=== PATIENT | female | born 1985 | race African-American/Black ===

== ENCOUNTER 2016-07-25 12:56 | Outpatient (CLI) | payer OTHER | END 2016-07-25 12:57 | disposition home or self-care (01) | DX: Z36 Encounter for antenatal screening of mother (principal) ==

== ENCOUNTER 2016-07-27 11:20 | Outpatient (CLI) | payer OTHER | END 2016-07-27 11:21 | disposition home or self-care (01) | DX: Z36 Encounter for antenatal screening of mother (principal) ==

== ENCOUNTER 2016-10-07 07:25 | Outpatient (CLI) | payer OTHER | END 2016-10-07 07:26 | disposition home or self-care (01) | DX: Z36 Encounter for antenatal screening of mother (principal) ==

== ENCOUNTER 2016-11-24 10:50 | Outpatient (CLI) | payer OTHER ==
[2016-11-24 12:34] LABS: BASOPHILS % (AUTO) 0.3 %; EOSINOPHILS # (AUTO) 0.1 10^3/uL (0.0-0.7); EOSINOPHILS % (AUTO) 0.8 %; HCT - HEMATOCRIT 37.9 % (37.0-47.0); HGB - HEMOGLOBIN 12.9 g/dL (12.0-16.0); LYMPHOCYTES # (AUTO) 1.7 10^3/uL (1.5-3.5); LYMPHOCYTES % (AUTO) 12.3 %; MEAN CORPUSCULAR HEMOGLOBIN 34.3 pg (27.0-31.0); MEAN CORPUSCULAR VOLUME 101.1 fL (81.0-99.0); MEAN PLATELET VOLUME 7.9 fL (7.9-10.8); MONOCYTES # (AUTO) 0.8 10^3/uL (0.0-1.0); MONOCYTES % (AUTO) 5.5 %; NEUTROPHILS # (AUTO) 11.4 10^3/uL (1.5-6.6); NEUTROPHILS % (AUTO) 81.1 %; RED BLOOD COUNT 3.75 10^6/uL (4.20-5.40); RED CELL DISTRIBUTION WIDTH 12.4 % (12.0-15.0); UNCORRECTED WHITE BLOOD COUNT 14.1 x10^3/uL; WHITE BLOOD COUNT 14.1 x10^3/uL (4.8-10.8)
== END 2016-11-24 10:51 | disposition home or self-care (01) ==
LOC: LAB 10:50
PROVIDERS: ATTEND Nurse Practitioner Obstetrics & Gynecology
DX: Z36 Encounter for antenatal screening of mother (principal)
CPT/HCPCS: 36415; 81599; 82950; 85025; 86762; 86850; 86900; 86901; 87340; 87389

== ENCOUNTER 2017-01-23 11:14 | Outpatient (CLI) | payer OTHER | END 2017-01-23 11:15 | disposition home or self-care (01) | LOC: LAB.R 11:14 | PROVIDERS: ATTEND Nurse Practitioner Obstetrics & Gynecology | DX: Z36 Encounter for antenatal screening of mother (principal) | CPT/HCPCS: 87081 ==

== ENCOUNTER 2017-02-15 05:06 | Inpatient (IN) | payer OTHER ==
[2017-02-15] MEDS ORDERED: SODIUM CHLORIDE FLUSH 0.9% 10 ML SYRINGE IVP ONE ×2 (06:05→06:28)
[2017-02-15] MEDS ORDERED: ONDANSETRON 4 MG/2 ML VIAL IVP PRN (06:25)
[2017-02-15] MEDS ORDERED: SODIUM CHLORIDE FLUSH 0.9% 10 ML SYRINGE IVP PRN (06:25)
--- NOTE | 2017-02-15 06:31 | HISTORY & PHYSICAL EXAMINATION ---
Admit History - Instructions [place]/Slash: -Left hand click circles element as positive or present. -Right hand click slashes element as negative or not present. - Visit Reason Visit Reason: Contractions - : 1 Parity: 0 Premature: 0 Ectopic: 0 : 0 Care: positive: [facility] Risk/History: positive: None Complications This : positive: None Smoking Status: Never smoker - Mother's Labs Mother's Blood Type: positive: O Mother's RH: positive: Positive GBS: positive: Group B Step Negative Rubella Status: positive: Immune Meds/Allgy - Home Medications Home Medications: Ambulatory Orders Medication Instructions Recorded Confirmed Pnv No.122/Iron/Folic Acid 1 each PO 02/15/17 [ Multi Tablet] - Allergies Allergies/Adverse Reactions: Allergies Allergy/AdvReac Type Severity Reaction Status Date / Time No Known Drug Allergies Allergy Verified 02/15/17 06:31 Physical - Abdominal Exam Vital Signs: Temp Pulse Resp BP Pulse Ox 36.4 C L 66 16 132/88 H 100 02/15/17 05:02/15/17 05:02/15/17 05:02/15/17 05:02/15/17 05:17 : 4 Contraction Intensity: positive: Moderate Uterine Resting Tone: positive: Soft - Monitoring Heart Rate Baseline: 135bpm Strip Review: positive: Category I - Presentation Presentation: positive: Vertex - Vaginal Exam Membranes: positive: Membranes intact Dilation (in cm): 4 Effacement (%): 70 Station: positive: -1 (per RN) - Speculum Exam Speculum Exam Performed: positive: No Findings: negative: Gross leak - Other Notes Labor Progress Note/Additional Text: HPI: Stephany Kendall is a 31 y/o @ 39w2d by LMP and concordant 9wk US who presents for uterine contractions @ term. Upon evaluation by RN, her SVE was 4/ 70/-1. She reports no LOF, no vaginal bleeding, some mucoid blood-tinged vaginal d/c, uterine contractions that have gotten progressively intense & painful since 00:00, and good FM. She was admitted to L&D for spontaneous normal labor @ term. She is accompanied by her supportive , Ariel. She is hoping for a minimally interventive labor and delivery experience, and she intends to utilize hydrotherapy for discomfort. She is expecting a baby girl , Kathy. Dating Criteria: LMP 05/16/2016; first US 07/09/16: 9.1 weeks, agrees w/ CANDY FEEDER hx: no hx of STI, no hx of ob/gyn surgery, hx of abnormal pap x1 w/ uncertain dx, last pap 05/27/2016 NILM, PMH: non-contributory PSH: b/l breast augmentation 2008 w/o complication Social hx: Never smoker, denies tob/illicit drugs/ETOH FamHx: DM: maternal GM; HTN paternal relatives, maternal relatives, mother Medications: PNV only Allergies: NKA Physical Exam: VS: WNL, stable Heart: RRR nls1s2, no murmur Lungs: CTA b/l t/o Abd: gravid, NT, palpably moderate contractions, q 4 minutes x60-80 seconds; lie longitudinal, presentation cephalic FHTs: 135bpm, + accels, no decels, moderate variability EFW: 6.-6.5# Pelvis: Not assessed by me; per RN report: SVE: /-1, IBOW Current labs: CBC/UA/clot to hold ordered & pending labs: Blood Type: O+ Hgb: 13.1; repeat @ 28 wks: 12.9 Hct: 38.0 PLT: 260 Rubella: Imm HIV: NR GC/CT: Neg Hep B: Neg RPR: NR 1hr gtt: 133 GBS: neg Tdap: administered 12/13/2016 Genetic Testing: NIPT WNL, XX Ultrasound: 10/07/2016 FAS WNL, anterior placenta w/o previa, AFV WNL, s=d Assessment: 31 y/o @ 39w2d in spontaneous active labor @ term FHTs cat I GBS neg, IBOW Adequate pain control w/o analgesia/anesthesia w/ desire for hydrotherapy & minimally interventive labor/delivery experience Plan: Admit to L&D monitoring: intermittent auscultation per protocol Activity ad ary Regular diet IV insertion & admission labs per orders Encouraged maternal mobility & reviewed optimal positioning to encourage further descent Reassess cervical status PRN Analgesia/anesthesia PRN per pt request, reviewed all options for pain management Anticipate Plan for Labor - Plan For Labor : Expectant, see detailed plan in labor progress notes Plan for Labor: Admit to L&D monitoring: intermittent auscultation per protocol Activity ad ary Regular diet IV insertion & admission labs per orders Encouraged maternal mobility & reviewed optimal positioning to encourage further descent Reassess cervical status PRN Analgesia/anesthesia PRN per pt request, reviewed all options for pain management Anticipate
[2017-02-15 06:58] LABS: BASOPHILS # (AUTO) 0.1 10^3/uL (0.0-0.1); BASOPHILS % (AUTO) 0.3 %; EOSINOPHILS # (AUTO) 0.1 10^3/uL (0.0-0.7); EOSINOPHILS % (AUTO) 0.5 %; HCT - HEMATOCRIT 41.3 % (37.0-47.0); HGB - HEMOGLOBIN 13.7 g/dL (12.0-16.0); LYMPHOCYTES % (AUTO) 17.7 %; MEAN CORPUSCULAR HEMOGLOBIN 33.5 pg (27.0-31.0); MEAN CORPUSCULAR HGB CONC 33.1 g/dL (32.0-36.0); MEAN CORPUSCULAR VOLUME 101.2 fL (81.0-99.0); MEAN PLATELET VOLUME 8.8 fL (7.9-10.8); MONOCYTES # (AUTO) 0.8 10^3/uL (0.0-1.0); NEUTROPHILS # (AUTO) 12.9 10^3/uL (1.5-6.6); NEUTROPHILS % (AUTO) 76.5 %; RED BLOOD COUNT 4.08 10^6/uL (4.20-5.40); RED CELL DISTRIBUTION WIDTH 12.9 % (12.0-15.0); UNCORRECTED WHITE BLOOD COUNT 16.9 x10^3/uL; WHITE BLOOD COUNT 16.9 x10^3/uL (4.8-10.8)
[2017-02-15] MEDS ORDERED: OXYTOCIN/LACTATED RINGERS 250 ML IV SCH (07:00)
--- NOTE | 2017-02-15 07:32 | PROVIDER PROGRESS NOTE ---
Labor Progress Note - Uterine Monitoring Uterine Monitoring Mode: positive: Palpation Contraction Frequency (min/apart): 4 Contraction Intensity: positive: Moderate to strong Uterine Resting Tone: positive: Soft - Monitoring Monitor Mode: positive: Doppler/auscultation Heart Rate Baseline: 140 Accelerations: positive: Present, 15x15 Decelerations: positive: None - Labor Progress Note Labor Progress Note/Additional Text: Stephany is doing well. She is resting quietly in bed, breathing through her contractions. Her , Ariel, is present @ the bedside & is supportive. She articulates a desire to have the technical staff assistant administer po vitamin K drops she has purchased through a supplement company online to her infant. We reviewed that the technical staff assistant will not administer a non-formulary substance to her infant, and we reviewed the recommendations for injectable vitamin K & rationale as well as evidence supporting its use & paucity of evidence supporting the use of po vitamin K in newborns. We reviewed the importance of prevention of early intracranial hemorrhage & the evidence that po vitamin K may prevent late hemorrhage but is unlikely to prevent early hemorrhage. We also reviewed the lack of FDA regulation for supplements in the [place] & the risks associated w/ this for the product that she obtained. I strongly recommended that she provide IM vitamin K per protocol for her infant. She remains skeptical & will discuss w/ her . She states that she has done her own research & that she knows that the IM vitamin K is an unnecessary intervention provided in hospital settings. We reviewed this at length, and I offered to provide her with literature for review. She declined. She is aware that she will need to complete a waiver re: refusal of vitamin K prior to d/c if she continues to decline, and she is inclined to do this. She articulates full understanding of risks of her decision & benefits of the intervention.
[2017-02-15 08:06] LABS: BILIRUBIN,URINE NEGATIVE (NEGATIVE); PH,URINE 6.5 PH (5.0-7.5)
[2017-02-15 08:18] LABS: UA CHARGE (STRIP ONLY) YES; UR CULTURE IF IND NOT INDICATED
--- NOTE | 2017-02-15 12:00 | PROVIDER PROGRESS NOTE ---
Labor Progress Note - Uterine Monitoring Uterine Monitoring Mode: positive: External toco Contraction Frequency (min/apart): 3-5 Contraction Intensity: positive: Moderate to strong Uterine Resting Tone: positive: Soft - Monitoring Monitor Mode: positive: External ultrasound Heart Rate Baseline: 145 Heart Rate Variability: positive: Moderate (6-25 bmp) Accelerations: positive: Present, 15x15 Decelerations: positive: None Strip Review: positive: Category I - Vaginal Exam Dilation (in cm): 4 Effacement (%): 80 Station: 0 Cervical Position: Midposition - Labor Progress Note Labor Progress Note/Additional Text: S: Stephany reports increased discomfort w/ her uterine contractions. She reports more vaginal discomfort & pressure. She has utilized hydrotherapy w/ good effect. She declines SVE or other intervention @ this time. She is eating lunch & she has her & his parents present @ the bedside; they are involved & very supportive. O: AAOx3, moderately uncomfortable gravid female VS: T 98.2F, HR 98bpm, RR 18, BP 122/80 EFM: BL 145bpm, + accels, no decels, moderate variability TOCO: UCs q3-5 minutes x70-90 seconds SVE per RN: 3-4/80/0 A: 32 y/o @ 39w2d in spontaneous labor Minimal cervical dilation since admission, but further descent & effacement FHTs Cat I GBS negative w/ IBOW Adequate pain control w/o analgesia/anesthesia Desires minimal intervention P: 1. Reviewed management options @ present, pt elects expectant management 2. Reviewed pain management options; pt desires ongoing hydrotherapy 3. Reviewed optimal maternal positioning 4. Reassess cervical status x4 hours, earlier PRN 5. Encouraged maternal hydration, high glycemic index foods 6. Pt declines additional labor support @ this time, prefers support from her
[2017-02-15] MEDS ORDERED: SODIUM CHLORIDE FLUSH 0.9% 10 ML SYRINGE IVP SCH (14:00)
--- NOTE | 2017-02-15 19:15 | PROVIDER PROGRESS NOTE ---
Labor Progress Note - Uterine Monitoring Uterine Monitoring Mode: positive: External toco Contraction Frequency (min/apart): 3-4 Contraction Intensity: positive: Strong Uterine Resting Tone: positive: Soft - Monitoring Monitor Mode: positive: External ultrasound Heart Rate Baseline: 140 Heart Rate Variability: positive: Moderate (6-25 bmp) Accelerations: positive: Present, 15x15 Decelerations: positive: None Strip Review: positive: Category I - Vaginal Exam Dilation (in cm): 60 Effacement (%): 95 Station: 0 Cervical Position: Anterior (per RN @ 6924) - Labor Progress Note Labor Progress Note/Additional Text: S: Stephany is breathing through her uterine contractions, moaning & swaying in the jacuzzi, which is helping her w/ her discomfort. Her partner is present @ the tubside & is involved & very supportive. She does not desire analgesia @ this time & declines SVE, declines AROM. She has had some bloody show, but she has not noticed any LOF. c/o low back pain w/ uterine contractions & increased vaginal pressure. O: AAOx3, moderately uncomfortable gravid female VS: T: 98.2F, HR 88bpm, RR 16, BP 124/78 EFM: BL 140bpm, + accels, no decels, moderate variability TOCO: UCs q3-4 minutes x70-90 seconds SVE per RN @ 1540: 6/95/0 A: 32 y/o @ 39w2d in spontaneous, active labor @ term Progressive cervical change since admission EFM consistently cat I Utilizing hydrotherapy effectively for pain management GBS negative w/ IBOW P: Reassess cervical status w/ change in clinical status Expectant management per pt request Analgesia/anesthesia per pt request, desires continuation of hydrotherapy @ present Reviewed optimal maternal positioning to encourage descent Anticipate
--- NOTE | 2017-02-15 20:01 | PROVIDER PROGRESS NOTE ---
Labor Progress Note - Uterine Monitoring Contraction Frequency (min/apart): 4-5 Contraction Intensity: positive: Strong Uterine Resting Tone: positive: Soft - Monitoring Monitor Mode: positive: External ultrasound Heart Rate Baseline: 145 Heart Rate Variability: positive: Moderate (6-25 bmp) Accelerations: positive: Present, 15x15 Decelerations: positive: None Strip Review: positive: Category I - Vaginal Exam Dilation (in cm): 9 Effacement (%): 90 Station: 1 Cervical Position: Anterior - Labor Progress Note Labor Progress Note/Additional Text: S: Stephany is feeling panicky & scared. She is having a harder time coping w/ uterine contractions. She is breathing through them. Her is present @ the tubside & is supportive. She prefers to continue to utilize hydrotherapy for pain management & she desires SVE to assess her progress. O: EFM: BL 145bpm +accels, no decels, mod variability TOCO: UCs q4-5 minutes x70-90 seconds, strong SVE: /0-+1 BBOW A: 32y/o @ 39w2d in active, spontaneous labor @ term Progressive cervical change FHTs consistently cat I GBS neg w/ IBOW Transition Does not desire analgesia/anesthesia P: Reviewed physiology of labor & transition phase Anticipatory guidance for second stage Extensive labor support, reviewed breathing, focus, position changes Continue use of hydrotherapy for pain management, per pt request Analgesia/anesthesia per pt request Encouraged high glycemic index fluid consumption, frequent voiding Reassess cervical status w/ maternal urge to push, earlier PRN Anticipate Reviewed plan of care w/ pt, partner & RN; all in agreement, without concerns
--- NOTE | 2017-02-15 22:24 | PROVIDER PROGRESS NOTE ---
Labor Progress Note - Uterine Monitoring Uterine Monitoring Mode: positive: External toco Contraction Frequency (min/apart): 3-4 Contraction Intensity: positive: Moderate to strong, Strong Uterine Resting Tone: positive: Soft - Monitoring Monitor Mode: positive: External ultrasound Heart Rate Baseline: 150 Heart Rate Variability: positive: Moderate (6-25 bmp) Accelerations: positive: Present, 15x15 Decelerations: positive: Early (to oracio in 100s w/ spontaneous return to baseline <60 seconds) Strip Review: positive: Category I - Vaginal Exam Dilation (in cm): 10 Effacement (%): 100 Station: 0, 1 Cervical Position: Anterior - Labor Progress Note Labor Progress Note/Additional Text: S:Stephany reports spontaneous urge to push. Very uncomfortable w/ profound vaginal pressure w/ each uterine contraction. O: VS: T98.2 HR 104bpm, RR 18 BP 100/73 EFM: BL 150bpm, + accels, + early decels to oracio in 100s w/ spontaneous return to baseline <60 seconds TOCO: UCs q3-4 minutes x70-90 seconds, palpably strong SVE: 10/100/0-+1, descends readily w/ maternal expulsive effort SROM for moderate amt light MSAF A: 32 y/o @ 39w2d in spontaneous active labor @ term Progressive cervical ticket dispenser changer the course of 22 hours SROM for light MSAF Adequate pain control w/o analgesia/anesthesia GBS negative 2nd stage labor P: Reviewed implications of MSAF Reviewed active management of third stage of labor & pt desires, will perform w / delivery of anterior shoulder using IV Pitocin Reviewed 2nd stage & effective pushing mechanisms, anticipatory guidance for delivery Begin pushing Anticipate
[2017-02-16] MEDS: LACTATED RINGERS 1,000 ML IV SCH ×5 (00:53→21:13)
[2017-02-16] MEDS ORDERED: OXYTOCIN/LACTATED RINGERS 250 ML IV SCH (01:00)
--- NOTE | 2017-02-16 01:27 | PROVIDER PROGRESS NOTE ---
Labor Progress Note - Uterine Monitoring Contraction Frequency (min/apart): 5-6 Contraction Intensity: positive: Moderate Uterine Resting Tone: positive: Soft - Monitoring Monitor Mode: positive: External ultrasound Heart Rate Baseline: 145 Heart Rate Variability: positive: Moderate (6-25 bmp) Accelerations: positive: Present, 15x15 Decelerations: positive: Early Strip Review: positive: Category I - Vaginal Exam Dilation (in cm): 10 Effacement (%): 100 Station: 1 Cervical Position: Anterior (descends to +2 w/ maternal expulsive efforts, intermittently. position DOP.) - Labor Progress Note Labor Progress Note/Additional Text: S: Stephany is exhausted & tearful with her contractions. She repeatedly remarks on her exhaustion & her desire to sleep O: VS: T: 97.2, HR 90bpm, RR 20 BP 112/69 EFM: BL 145bpm, + accels, + early decels to oracio in 110s w/ spontaneous return to baseline <60 seconds TOCO: Erratic uterine contractions q2-6min, varying intensity, varying duration SVE: 10/100/+1-+2, position DOP Ongoing leakage of MSAF A: 32 y/o @ 39w2d in spontaneous active labor @ term Maternal exhaustion s/p being awake >36 hours w/ uterine contractions MSAF Minimal descent s/p ~3hours of active pushing GBS negative, SROM x3 hours, afebrile malposition P: Encouraged pt to consider epidural placement to facilitate maternal rest, pt declines Reviewed dysfunctional contraction pattern & ineffective pushing @ this time secondary to exhaustion. Reviewed possible sequelae of protracted labor for mother & baby. Recommend Pitocin augmentation, PARQ & pt desires, will begin @ 1mU/min & titrate per protocol to effective contraction pattern by tocometry Reviewed malposition & implications @ length, reviewed implications of minimal descent & recommended anesthesia placement to allow for attempted manual rotation of head, IUPC placement & proper Pitocin titration to achieve adequate labor, pt declines Reassess station x1 hour, earlier PRN, pt may push or choose to try to rest through contractions, reviewed maternal positioning Reviewed plan of care w/ pt, partner, RN @ bedside, chargemaster analyst & MD, all agree that optimal management would include maternal anesthesia & Pitocin infusion. Pt declines anesthesia, accepts Pitocin augmentation
[2017-02-16] MEDS ORDERED: fent/BUPIV 2 MCG/0.125% 250 ML EP ONE (02:11)
--- NOTE | 2017-02-16 03:56 | PROVIDER PROGRESS NOTE ---
Labor Progress Note - Uterine Monitoring Uterine Monitoring Mode: positive: IUPC (baseline 40mmHg, peak 80mmHg, MVU presently 160, Pitocin infusing @ 3mU/min) Contraction Frequency (min/apart): 2-3min Contraction Intensity: positive: Moderate to strong Uterine Resting Tone: positive: Soft - Monitoring Monitor Mode: positive: Spiral electrode Heart Rate Baseline: 140 Heart Rate Variability: positive: Moderate (6-25 bmp) Accelerations: positive: Present, 15x15 Decelerations: positive: Variable (isolated variable to oracio in 80s during attempted manual rotation of head from DOP to LOT, resolved w/ cessation, FSE applied w/o incident.) Strip Review: positive: Category II - Vaginal Exam Dilation (in cm): 10 Effacement (%): 100 Station: 1 ( position DOP, significant caput) Cervical Position: Anterior - Labor Progress Note Labor Progress Note/Additional Text: S: Stephany is now comfortable w/ her epidural in place. She was able to sleep soundly x1 hour w/o discomfort. PARQ re: manual rotation of head. Stephany continues to doze secondary to exhaustion & adequate anesthesia. Partner asleep @ bedside. O: VS: T: 97.2 HR 99 RR 16 BP 133/82 EFM: BL 140 + accels, isolated decel to oracio in 80s w/ attempted manual rotation of head; resolved spontaneously w/ cessation; FSE applied w/o difficulty Uterine contractions irregular on toco: IUPC placed w/o incident; baseline 40mmHg, peak 80mmHg, MVU presently 160 w/ Pitocin infusing @ 3mU/min, total Pitocin infusion time 3 hours w/ slow titration SVE: 10/100/+1, DOP positioning, significant caput A: 32y/o @ 39w3d in active, spontaneous labor @ term Slow but progressive cervical chart changer a period of 22 hours to complete dilatation 2nd stage now 5 hours w/ no descent, despite 3 hours of active pushing prior to epidural anesthesia SROM x5 hours for MSAF, afebrile Persistent OP position w/ inability to manually rotate secondary to intolerance Pitocin augmentation x3 hours Adequate pain control w/ epidural anesthesia FHTs cat II only during attempted manual rotation, otherwise consistently cat I P: Reviewed implications of persistent OP positioning & inability to rotate, no descent Reviewed implications of prolonged 2nd stage w/o descent Continue to titrate Pitocin per protocol to adequate labor per IUPC Reassess cervical status x1 hour, at which point her total second stage would exceed [address] chatterjee catheter to maintain empty bladder Reviewed plan of care with patient, partner, RN @ bedside & backup MD, Dr. Enoc Stewart; all in agreement, pt tearful at prospect of alternate route of delivery, but she articulates full understanding of the present clinical scenario.
--- NOTE | 2017-02-16 06:44 | PROVIDER PROGRESS NOTE ---
Labor Progress Note - Uterine Monitoring Contraction Frequency (min/apart): 2-4 min Contraction Intensity: positive: Strong Uterine Resting Tone: positive: Soft - Monitoring Monitor Mode: positive: External ultrasound Heart Rate Baseline: 150 Heart Rate Variability: positive: Moderate (6-25 bmp) Accelerations: positive: Present, 15x15 Decelerations: positive: Early Strip Review: positive: Category I - Vaginal Exam Dilation (in cm): 10 Effacement (%): 100% Station: 1 (Caput, ROP) - Labor Progress Note Labor Progress Note/Additional Text: Pt reached complete at 2200 and SROM at about the same time. She was noted to be OP at that time. Seh was tried on knee chest, birthing ball, toilet, Squat bar, lateral pushing. an epidural was placed after 4 hours of pushing. Pit stared at 0100. She was rested for 3 hours then restarted pushing. she has not shown further progress. Discussed options and pt requests C/S. R&B, QAA. will progress to C/S
[2017-02-16] MEDS ORDERED: CITRIC ACID/SODIUM CITRATE 15 ML UDC PO ONE (06:54)
[2017-02-16] MEDS ORDERED: ceFAZolin 2 GM/50 ML 50 ML IV ONE (06:55)
[2017-02-16] MEDS ORDERED: ACETAMINOPHEN 325 MG TABLET PO PRN (06:56)
[2017-02-16] MEDS ORDERED: LACTATED RINGERS 1,000 ML IV ONE ×3 (07:30→08:51)
[2017-02-16] MEDS ORDERED: LIDOCAINE 2% 10 ML MDV SUBQ ONE (07:45)
[2017-02-16] MEDS ORDERED: ACETAMINOPHEN 1,000 MG/100 ML 100 ML IV ONE (07:45)
[2017-02-16] MEDS ORDERED: OXYTOCIN 10 UNIT/ML VIAL IV ONE (07:45)
[2017-02-16] MEDS ORDERED: SODIUM CHLORIDE FLUSH 0.9% 10 ML SYRINGE IVP ONE (08:29)
[2017-02-16] MEDS ORDERED: ONDANSETRON ODT 4 MG TABLET TL PRN (08:41)
[2017-02-16] MEDS ORDERED: diphenhydrAMINE 25 MG CAPSULE PO PRN (08:41)
[2017-02-16] MEDS ORDERED: oxyCODONE 5 MG TABLET PO PRN (08:41)
--- NOTE | 2017-02-16 08:50 | OPERATIVE REPORT ---
Operative Report - General Admit Date: 02/15/17 Procedure Date: 02/16/17 Planned Procedure: PLTC/S Pre-Op Diagnosis: 38 weeks Arrest of decent Procedure Performed: PLTC/S - Procedure Note Primary Surgeon: Enoc Stewart Secondary Surgeon: Sierra Dewitt Anesthesia Provider: Epidural Anesthesia Technique: Epidural Estimated Blood Loss (mL): 500 Complications: Head deeply impacted in the uterus
[2017-02-16] MEDS ORDERED: IBUPROFEN 600 MG TABLET PO SCH (09:00)
--- NOTE | 2017-02-16 09:24 | XRAY Report ---
TWO-VIEW ABDOMEN: 02/16/2017 CLINICAL INDICATION: Incorrect operating room count. FINDINGS: Supine and cross table lateral views of the lower abdomen demonstrate no evidence of radio paque foreign body in the surgical field. Subcutaneous gas is incidentally noted. IMPRESSION: NO EVIDENCE OF RETAINED SURGICAL INSTRUMENT. CRITICAL TEST: RESULTS CALLED TO THE OPERATING ROOM ON 02/16/2017 AT 0855 A.M. JOB #: [id number] EXT JOB #:[id number]
[2017-02-16] MEDS ORDERED: KETOROLAC 30 MG/ML VIAL IVP ONE (09:27)
[2017-02-16] MEDS: fentaNYL 100 MCG/2 ML VIAL IVP PRN ×3 (09:33→11:46)
--- NOTE | 2017-02-16 09:43 | OPERATIVE REPORT ---
DATE OF SURGERY: 02/16/2017 00:00:00 PREOPERATIVE DIAGNOSES 1. 38 weeks. 2. Arrest of descent. 3. Occiput posterior. POSTOPERATIVE DIAGNOSES 1. 38 weeks. 2. Arrest of descent. 3. Occiput posterior. 4. Nuchal cord x2. NAME OF PROCEDURE: Primary low transverse section. SURGEON: Enoc Stewart MD. GYMNASTIC TEACHER: Sierra Dewitt CNM. ANESTHESIA: Epidural. ESTIMATED BLOOD LOSS: 500 mL. FINDINGS: Live female infant deeply impacted into the pelvis in the right occiput posterior position. Upon delivery, there was evidence of a nuchal cord, which was around the neck twice. The tubes and ovaries appeared to be free of disease. PROCEDURE: Following adequate spinal epidural anesthesia, the patient was placed on the operating table in the supine position with a roll under her right hip. A Saab catheter was placed under sterile conditions. She was then prepped and draped in the usual fashion. Timeout was performed, which the patient was identified, date of , as well as potential concerns. Concern of deep impacted of the head was discussed. At this point, the procedure was commenced following checking for good anesthesia. A Pfanenstel incision was utilized. The peritoneum was entered high. Care was taken to avoid injury to bowel or bladder. At this point, the incision was carried superiorly and inferiorly with Metzenbaum scissors. A bladder retractor was placed and a bladder flap was developed using both blunt and sharp dissection. A low transverse uterine incision was accomplished high because of the cervix being pulled up from a protracted labor. The incision was carried laterally with bandage scissors. At this point, the head was noted to be occiput posterior. The cord was noted around the neck and the head was deeply impacted in the pelvis. The board lining machine operator's hand was placed and withdrew the head from the pelvic cavity. The head was rotated around occiput anterior and then the head was delivered without difficulty. The cord was detangled and then the cord was doubly clamped, divided, and the was handed to the nursery team that was standing by. Cord blood samples were obtained. At this point, the placenta was manually delivered and then the uterus exterior was wrapped in a moist lap and cleansed in the internal portion with a dry lap. The incision was grasped in the lower portion with ring forceps and then sutured closed using 0 Vicryl in a running locking suture with an imbricating layer of #0 Vicryl. At this point, a moist lap was placed through the incision and the uterus was tipped forward. The cul-de-sac was suctioned clear and the estimated blood loss was noted to be about 500 mL. The cul-de-sac was irrigated and then the uterus delivered back in the abdominal cavity. The gutters were likewise irrigated. No clots were noted at this time. The incision was inspected for bleeding, none was noted. The peritoneum was closed using 2-0 Vicryl and the rectus was inspected. There was evidence of some bleeding from the perforators and these were treated with electrocautery. The fascia was then closed using a running suture of 0 PDS and then tied. Subcutaneous tissue was irrigated. No bleeding noted, so the incision itself was closed using 4-0 Monocryl. This was then dressed with Mastisol and Steri-Strips. A dressing was then applied. Because the instrument count was shown to have an additional instrument, an x-ray was performed to rule out evidence of any retained foreign bodies. JOB #: [id number] EXT JOB #:[id number] NIKITA
[2017-02-16] MEDS: ACETAMINOPHEN 500 MG TABLET PO SCH ×2 (13:26→21:10)
[2017-02-16] MEDS: SODIUM CHLORIDE FLUSH 0.9% 10 ML SYRINGE IVP PRN (15:19)
[2017-02-16] MEDS: KETOROLAC 30 MG/ML VIAL IV SCH ×3 (15:20→21:09)
[2017-02-16] MEDS: oxyCODONE 5 MG TABLET PO PRN (15:20)
[2017-02-16] MEDS ORDERED: OXYTOCIN/LACTATED RINGERS 250 ML IV ONE (16:38)
[2017-02-16] MEDS: SIMETHICONE CHEW 80 MG TABLET PO SCH (16:41)
[2017-02-16] MEDS: DOCUSATE SODIUM 100 MG CAPSULE PO SCH (16:41)
[2017-02-16] MEDS: SODIUM CHLORIDE FLUSH 0.9% 10 ML SYRINGE IVP SCH ×2 (18:21→22:19)
[2017-02-17] MEDS: SIMETHICONE CHEW 80 MG TABLET PO SCH ×4 (02:57→21:00)
[2017-02-17] MEDS: KETOROLAC 30 MG/ML VIAL IV SCH (02:57)
[2017-02-17] MEDS: oxyCODONE 5 MG TABLET PO PRN (04:20)
[2017-02-17] MEDS: SODIUM CHLORIDE FLUSH 0.9% 10 ML SYRINGE IVP SCH (04:21)
[2017-02-17] MEDS: ACETAMINOPHEN 500 MG TABLET PO SCH ×4 (05:43→23:28)
[2017-02-17] MEDS: DOCUSATE SODIUM 100 MG CAPSULE PO SCH ×3 (05:43→21:00)
[2017-02-17] MEDS: LACTATED RINGERS 1,000 ML IV SCH ×3 (07:26→15:28)
[2017-02-17 07:33] LABS: BASOPHILS % (AUTO) 0.2 %; EOSINOPHILS % (AUTO) 0.2 %; HCT - HEMATOCRIT 29.7 % (37.0-47.0); LYMPHOCYTES # (AUTO) 2.2 10^3/uL (1.5-3.5); LYMPHOCYTES % (AUTO) 12.9 %; MEAN CORPUSCULAR HEMOGLOBIN 34.2 pg (27.0-31.0); MEAN CORPUSCULAR HGB CONC 33.8 g/dL (32.0-36.0); MEAN CORPUSCULAR VOLUME 101.3 fL (81.0-99.0); MEAN PLATELET VOLUME 8.4 fL (7.9-10.8); NEUTROPHILS # (AUTO) 13.9 10^3/uL (1.5-6.6); NEUTROPHILS % (AUTO) 80.7 %; NUCLEATED RED BLOOD CELLS AUTO 0.1 /100WBC; RED BLOOD COUNT 2.93 10^6/uL (4.20-5.40); RED CELL DISTRIBUTION WIDTH 12.9 % (12.0-15.0); UNCORRECTED WHITE BLOOD COUNT 17.2 x10^3/uL; WHITE BLOOD COUNT 17.2 x10^3/uL (4.8-10.8)
--- NOTE | 2017-02-17 08:13 | PROVIDER PROGRESS NOTE ---
Subjective - General Admit Date: 02/15/17 Procedure Date: 02/16/17 Post Op Days: 1 Procedure Performed: PLTC/S - Review of Systems Wound/Incisions: positive: Healing well. negative: Drainage General: positive: No symptoms (Sachin 09/26. Sleepy this AM) Gastrointestinal: positive: No symptoms Genitourinary: positive: No symptoms (voiding) Objective - Patient Data Reviewed Vital Signs: Yes Vital Signs: Vital Signs x48h Temp Pulse Resp BP Pulse Ox 02/17/17 04:00 36.7 C 65 16 96/60 98 Weight: Weight 02/15/17 02/16/17 02/17/17 23:59 23:59 23:59 Weight (kg) 68.039 kg Intake & Output: Intake and Output Totals x24h 02/15/17 02/16/17 02/17/17 23:59 23:59 23:59 Intake Total 2384 850 Output Total 1625 750 Balance 759 100 - Lab Results Lab Results: 02/17/17 07:10 Other Lab Results: Lab Results x24hrs 02/17/17 Range/Units 07:10 WBC 17.2 H (4.8-10.8) x10^3/uL RBC 2.93 L (4.20-5.40) 10^6/uL Hgb 10.0 L (12.0-16.0) g/dL Hct 29.7 L (37.0-47.0) % MCV 101.3 H (81.0-99.0) fL MCH 34.2 H (27.0-31.0) pg MCHC 33.8 (32.0-36.0) g/dL RDW 12.9 (12.0-15.0) % Plt Count 182 (130-450) 10^3/uL MPV 8.4 (7.9-10.8) fL Neut # 13.9 H (1.5-6.6) 10^3/uL Lymph # 2.2 (1.5-3.5) 10^3/uL [place] # 1.0 (0.0-1.0) 10^3/uL Eos # 0.0 (0.0-0.7) 10^3/uL Baso # 0.0 (0.0-0.1) 10^3/uL Absolute Nucleated RBC 0.01 x10^3/uL Nucleated RBCs 0.1 /100WBC - Current Medications Current Medications: Current Medications Generic Name Dose Route Start Last Admin Trade Name Leah PRN Reason Stop Dose Admin Acetaminophen 1,000 mg 02/16/17 09:00 02/17/17 05:43 Tylenol PO 1,000 mg Q8H SARAH Administration Docusate Sodium 100 mg 02/16/17 09:00 02/17/17 05:43 Colace 100mg Capsule PO 100 mg BID SARAH Administration Lactated Ringer's 1,000 mls @ 100 mls/hr 02/16/17 09:00 02/17/17 07:27 Lr IV Not Given .Q10H SARAH Oxycodone HCl 5 - 10 mg 02/16/17 14:40 02/17/17 04:20 Roxicodone PO 10 mg Q4HR PRN Administration PAIN Simethicone 80 mg 02/16/17 14:00 02/17/17 07:27 Mylicon PO Not Given TID SARAH Sodium Chloride 10 ml 02/16/17 08:41 02/16/17 15:19 Normal Saline Flush 0.9% IVP 10 ml PRN PRN Administration NEEDED PER PROVIDER ORDERS Sodium Chloride 10 ml 02/16/17 14:00 02/17/17 04:21 Normal Saline Flush 0.9% IVP 10 ml Q8HR SARAH Administration - Physical Exam Wound/Incisions: positive: Healing well General Appearance: positive: No acute distress, Lethargic Respiratory: positive: Chest non-tender, No respiratory distress Cardiovascular: positive: Regular rate & rhythm, No murmur Abdomen: positive: Non-tender, Nml bowel sounds, No distention Back: negative: CVA tenderness (R), CVA tenderness (L) Extremities: negative: Calf tenderness, Rock's sign/cords Impression/Plan - Problem List Problem List: S/P PLC/S progressing continue care.
[2017-02-17] MEDS: IBUPROFEN 600 MG TABLET PO SCH ×3 (08:55→23:28)
[2017-02-17] MEDS ORDERED: LORazepam 2 MG/ML SYRINGE ONE ×2 (11:08→11:21)
[2017-02-17] MEDS ORDERED: SODIUM CHLORIDE FLUSH 0.9% 10 ML SYRINGE IVP ONE (11:09)
[2017-02-17] MEDS ORDERED: MAGNESIUM SULFATE 4 GM in SODIUM CHLORIDE 0.9% 50 ML IV ONE (11:39)
[2017-02-17 11:41] LABS: BASOPHILS # (AUTO) 0.1 10^3/uL (0.0-0.1); BASOPHILS % (AUTO) 0.5 %; EOSINOPHILS # (AUTO) 0.1 10^3/uL (0.0-0.7); EOSINOPHILS % (AUTO) 0.4 %; HCT - HEMATOCRIT 35.8 % (37.0-47.0); HGB - HEMOGLOBIN 11.7 g/dL (12.0-16.0); LYMPHOCYTES # (AUTO) 6.5 10^3/uL (1.5-3.5); MEAN CORPUSCULAR HEMOGLOBIN 34.1 pg (27.0-31.0); MEAN CORPUSCULAR HGB CONC 32.7 g/dL (32.0-36.0); MEAN CORPUSCULAR VOLUME 104.2 fL (81.0-99.0); MEAN PLATELET VOLUME 8.8 fL (7.9-10.8); MONOCYTES # (AUTO) 1.7 10^3/uL (0.0-1.0); MONOCYTES % (AUTO) 6.2 %; NEUTROPHILS # (AUTO) 19.5 10^3/uL (1.5-6.6); NEUTROPHILS % (AUTO) 69.9 %; RED BLOOD COUNT 3.44 10^6/uL (4.20-5.40); RED CELL DISTRIBUTION WIDTH 13.5 % (12.0-15.0)
[2017-02-17] MEDS ORDERED: MAGNESIUM SULFATE 1 GM/2 ML VIAL ONE (11:48)
[2017-02-17] MEDS ORDERED: MAGNESIUM SULFATE 2 GRAM 100 ML IV ONE (11:49)
[2017-02-17] MEDS ORDERED: MAGNESIUM SULFATE 2 GRAM 50 ML IV SCH (11:50)
[2017-02-17 12:04] LABS: URIC ACID 5.8 mg/dL (2.6-7.2)
[2017-02-17] MEDS: MAGNESIUM SULFATE 40 GM in LACTATED RINGERS 420 ML IV SCH ×2 (12:11→12:16)
[2017-02-17 12:28] LABS: ALBUMIN/GLOBULIN RATIO 0.7 (1.0-2.2); BILIRUBIN,TOTAL 0.4 mg/dL (0.2-1.0); CALCIUM 8.7 mg/dL (8.5-10.3); CREATININE 0.9 mg/dL (0.4-1.0); POTASSIUM 3.9 mmol/L (3.5-5.0)
[2017-02-17 12:32] LABS: PLATELET ESTIMATE, MANUAL NORMAL (130-450,000) (NORMAL); PLATELET MORPHOLOGY NORMAL APPEARANCE (NORMAL); WBC MORPHOLOGY (MULTIPLE) NORMAL APPEARANCE (NORMAL)
--- NOTE | 2017-02-17 12:37 | CT Preliminary Report ---
Exam: CT Head W/O IMPRESSION: 1. Potential sphenoid sinusitis. 2. No evidence for intracranial hemorrhage or mass. [facility] SITE ID: [id number]
--- NOTE | 2017-02-17 12:39 | CT Report ---
EXAM: CT HEAD EXAM DATE: 02/17/2017 11:43 AM. CLINICAL HISTORY: New seizure. COMPARISON: None. TECHNIQUE: Multiaxial CT images were obtained from the foramen magnum to the vertex. IV contrast: Non e. Reformats: Coronal. Patient's head was tilted in scanning gantry. In accordance with CT protocol optimization, one or more of the following dose reduction techniques w ere utilized for this exam: automated exposure control, adjustment of mA and/or KV based on patient s ize, or use of iterative reconstructive technique. FINDINGS: Parenchyma: No intraparenchymal hemorrhage. No evidence of mass, midline shift, or CT findings of inf arction. Will-white differentiation is distinct. Extraaxial Spaces: Normal for age. No subdural or epidural collections identified. Ventricles: Normal in size and position. Sinuses: Dependent secretions within sphenoid sinus. Bones: No evidence of fracture or calvarial defect. Other: None. IMPRESSION: 1. Potential sphenoid sinusitis. 2. No evidence for intracranial hemorrhage or mass. [facility] Referring Provider Line: [phone] SITE ID: [id number]
--- NOTE | 2017-02-17 12:42 | PROVIDER PROGRESS NOTE ---
Subjective - General Admit Date: 02/15/17 Procedure Date: 02/16/17 Post Op Days: 1 Procedure Performed: PLTC/S - Review of Systems Wound/Incisions: positive: Healing well, Other (Re inspected after Sz and wound dry & intact) General: positive: No symptoms (Pian 4/10. Sleepy this AM) HEENT: positive: Other (Tongue & oral bite wound post C/S) Pulmonary: positive: No symptoms Cardiovascular: positive: No symptoms Gastrointestinal: positive: No symptoms Genitourinary: positive: No symptoms (voiding), Other (Min Nonfoul Lochia) Musculoskeletal: positive: Other (No edema; Muscle stiffness post ictal) Skin: positive: No symptoms Neurological: Psychiatric: positive: Confusion, Other (Post ictal) - Other Other Information/Narrative: Around 11 am I was summoned to the room by nursing and arrived immediately. She was in generalized tonic-clonic seizure that lasted approx 2 minutes. Gave 1 mg Ativan while waiting for MG. Not bite bar or oral airway in room. Called Code team. Seizure subsided without focal neuro signs. Airway secure and suctioned. Pt sent for stat CT scan which was normal. I reviewed the CT w the radiologist -- no edema or bleeds. Reviewed office & hospital records and no suspicion of PIH & B/P normal during this hospitalization. No prior neurological disease Hx. Objective - Patient Data Vital Signs: Vital Signs x48h Temp Pulse Resp BP Pulse Ox 02/17/17 08:09 97.3 F L 77 15 96/64 96 Weight: Weight 02/15/17 02/16/17 02/17/17 23:59 23:59 23:59 Weight (kg) 68.039 kg Intake & Output: Intake and Output Totals x24h 02/15/17 02/16/17 02/17/17 23:59 23:59 23:59 Intake Total 2384 850 Output Total 1625 750 Balance 759 100 - Lab Results Lab Results: 02/17/17 11:11 02/17/17 11:11 Other Lab Results: Lab Results x24hrs 02/17/17 02/17/17 02/17/17 Range/Units 11:11 11:11 11:11 WBC (4.8-10.8) x10^3/uL RBC (4.20-5.40) 10^6/uL Hgb (12.0-16.0) g/dL Hct (37.0-47.0) % MCV (81.0-99.0) fL MCH (27.0-31.0) pg MCHC (32.0-36.0) g/dL RDW (12.0-15.0) % Plt Count (130-450) 10^3/uL MPV (7.9-10.8) fL Neut # (1.5-6.6) 10^3/uL Lymph # (1.5-3.5) 10^3/uL [place] # (0.0-1.0) 10^3/uL Eos # (0.0-0.7) 10^3/uL Baso # (0.0-0.1) 10^3/uL Absolute Nucleated RBC x10^3/uL Nucleated RBCs /100WBC Manual Slide Review WBC Morphology (NORMAL) Platelet Estimate (NORMAL) Platelet Morphology (NORMAL) RBC Morph Micro Appear (NORMAL) Sodium 139 (135-145) mmol/L Potassium 3.9 (3.5-5.0) mmol/L Chloride 104 (101-111) mmol/L Carbon Dioxide 19 L (21-32) mmol/L Anion Gap 16.0 H (6-13) BUN 11 (6-20) mg/dL Creatinine 0.9 (0.4-1.0) mg/dL Estimated GFR (MDRD) 89 (>89) Glucose 114 H (70-100) mg/dL Uric Acid 5.8 (2.6-7.2) mg/dL Calcium 8.7 (8.5-10.3) mg/dL Magnesium 1.7 (1.7-2.8) mg/dL Total Bilirubin 0.4 (0.2-1.0) mg/dL AST 54 H 54 H (10-42) IU/L ALT 17 (10-60) IU/L Alkaline Phosphatase 94 (42-121) IU/L Lactate Dehydrogenase (91-225) IU/L Total Protein 6.0 L (6.7-8.2) g/dL Albumin 2.5 L (3.2-5.5) g/dL Globulin 3.5 (2.1-4.2) g/dL Albumin/Globulin Ratio 0.7 L (1.0-2.2) 02/17/17 02/17/17 02/17/17 Range/Units 11:11 11:11 07:10 WBC 28.0 H 17.2 H (4.8-10.8) x10^3/uL RBC 3.44 L 2.93 L (4.20-5.40) 10^6/uL Hgb 11.7 L 10.0 L (12.0-16.0) g/dL Hct 35.8 L 29.7 L (37.0-47.0) % MCV 104.2 H 101.3 H (81.0-99.0) fL MCH 34.1 H 34.2 H (27.0-31.0) pg MCHC 32.7 33.8 (32.0-36.0) g/dL RDW 13.5 12.9 (12.0-15.0) % Plt Count 239 182 (130-450) 10^3/uL MPV 8.8 8.4 (7.9-10.8) fL Neut # 19.5 H 13.9 H (1.5-6.6) 10^3/uL Lymph # 6.5 H 2.2 (1.5-3.5) 10^3/uL [place] # 1.7 H 1.0 (0.0-1.0) 10^3/uL Eos # 0.1 0.0 (0.0-0.7) 10^3/uL Baso # 0.1 0.0 (0.0-0.1) 10^3/uL Absolute Nucleated RBC 0.01 0.01 x10^3/uL Nucleated RBCs 0.0 0.1 /100WBC Manual Slide Review Indicated WBC Morphology NORMAL APPEARANCE (NORMAL) Platelet Estimate NORMAL (130-450,000) (NORMAL) Platelet Morphology NORMAL APPEARANCE (NORMAL) RBC Morph Micro Appear NORMAL APPEARANCE (NORMAL) Sodium (135-145) mmol/L Potassium (3.5-5.0) mmol/L Chloride (101-111) mmol/L Carbon Dioxide (21-32) mmol/L Anion Gap (6-13) BUN (6-20) mg/dL Creatinine (0.4-1.0) mg/dL Estimated GFR (MDRD) (>89) Glucose (70-100) mg/dL Uric Acid (2.6-7.2) mg/dL Calcium (8.5-10.3) mg/dL Magnesium (1.7-2.8) mg/dL Total Bilirubin (0.2-1.0) mg/dL AST (10-42) IU/L ALT (10-60) IU/L Alkaline Phosphatase (42-121) IU/L Lactate Dehydrogenase 228 H (91-225) IU/L Total Protein (6.7-8.2) g/dL Albumin (3.2-5.5) g/dL Globulin (2.1-4.2) g/dL Albumin/Globulin Ratio (1.0-2.2) - Current Medications Current Medications: Current Medications Generic Name Dose Route Start Last Admin Trade Name Freq PRN Reason Stop Dose Admin Acetaminophen 1,000 mg 02/16/17 09:00 02/17/17 09:46 Tylenol PO Not Given Q8H SARAH Docusate Sodium 100 mg 02/16/17 09:00 02/17/17 08:55 Colace 100mg Capsule PO 100 mg BID SARAH Administration Lactated Ringer's 1,000 mls @ 100 mls/hr 02/16/17 09:00 02/17/17 07:27 Lr IV Not Given .Q10H SARAH Magnesium Sulfate 40 gm/ 500 mls @ 25 mls/hr 02/17/17 12:00 02/17/17 12:16 Lactated Ringer's IV 25 mls/hr .Q20H SARAH Administration 2 GM/HR Ibuprofen 600 mg 02/17/17 09:00 02/17/17 08:55 Motrin PO 600 mg Q6H SARAH Administration Oxycodone HCl 5 - 10 mg 02/16/17 14:40 02/17/17 04:20 Roxicodone PO 10 mg Q4HR PRN Administration PAIN Simethicone 80 mg 02/16/17 14:00 02/17/17 08:54 Mylicon PO 80 mg TID SARAH Administration Sodium Chloride 10 ml 02/16/17 08:41 02/16/17 15:19 Normal Saline Flush 0.9% IVP 10 ml PRN PRN Administration NEEDED PER PROVIDER ORDERS Sodium Chloride 10 ml 02/16/17 14:00 02/17/17 04:21 Normal Saline Flush 0.9% IVP 10 ml Q8HR SARAH Administration Assessment/Plan - Assessment/Plan Assessment: Mrs Kendall expierenced generalized siezure without antecedent cause. B/P does not fit criteria for GHTN and no symptoms consistent w pre-eclampsia symptoms. Doubt medication reaction and last oxcodone at 0400. Regardless Eclampsia suspect and Mag drip sz prophylaxis required in this setting. CT and current neuro exam indicate she is intact but post ictus. More indepth eval w hospitalist to be conducted. Post C/S recovery progressing well. Plan: MagSO4 drip Serial PIH Labs Sz Precautions Internal Med Eval CXR Physical Exam - Physical Exam General: positive: Lethargic, Other (Post ictal) HEENT: positive: Dentition normal (Bite L wound rear tongue) Neck: positive: Supple w/out meningeal sx, No JVD Cardiac: positive: Regular Rate, Regular Rhythm, Murmur Present (2/6 ZENAIDA of ) Resipratory: positive: Clear to ausultation floridalma Abdomen: positive: Normal Bowel sounds, Tender to palpation (Appropriately tender), Surgical Scars (Intact) Female : positive: Other (Normal Lochia) Extremities: positive: No pedal edema Skin: positive: Other (finger tips & feet cool) Neurologic: positive: Lethargic, Normal Sensation, Other (diffuse weakness; DTR 2+/= 2 beat clonus)
[2017-02-17] MEDS ORDERED: ACETAMINOPHEN 120 MG SUPP PR SCH (13:45)
[2017-02-17] MEDS ORDERED: ACETAMINOPHEN 650 MG SUPP PR SCH (14:00)
[2017-02-17] MEDS ORDERED: MAGNESIUM SULFATE 40 GM in LACTATED RINGERS 420 ML IV SCH (15:00)
--- NOTE | 2017-02-17 19:45 | PROVIDER PROGRESS NOTE ---
Subjective - General Admit Date: 02/15/17 Procedure Date: 02/16/17 Post Op Days: 1 Procedure Performed: PLTC/S - Review of Systems Wound/Incisions: positive: Healing well, Other (Re inspected after Sz and wound dry & intact) Drain Type: Saab Drain Output Description: 750 cc last 8 hours General: positive: No symptoms (Pian 4/10. Sleepy this AM), Other HEENT: positive: Other (Tongue & oral bite wound post siezure) Pulmonary: positive: No symptoms Cardiovascular: positive: No symptoms Gastrointestinal: positive: No symptoms Genitourinary: positive: No symptoms (voiding), Other (Min Nonfoul Lochia) Musculoskeletal: positive: Other (No edema; Muscle stiffness post ictal) Skin: positive: No symptoms Psychiatric: positive: No symptoms, Other All Other Systems: positive: Reviewed and negative - Other Other Information/Narrative: Patient alert and holding . Happy but tired. NO REZA, VISUAL DISTURBANCE OR RUQ PAIN. Objective - Patient Data Vital Signs: Vital Signs x48h Temp Pulse Resp BP Pulse Ox 02/17/17 18:00 77 16 100/59 L 97 02/17/17 17:30 79 16 94/67 97 02/17/17 17:00 82 16 94/68 98 02/17/17 16:30 74 16 97/65 99 02/17/17 16:00 76 16 93/62 100 02/17/17 15:30 80 16 105/60 100 02/17/17 15:00 97.7 F 81 18 105/68 99 02/17/17 13:25 81 97 02/17/17 13:20 87 96 02/17/17 13:15 88 95 02/17/17 13:10 91 97 02/17/17 13:05 81 97 02/17/17 13:00 86 93/64 97 02/17/17 12:55 85 96 02/17/17 12:50 87 96 02/17/17 12:45 88 96 02/17/17 12:40 90 96 02/17/17 12:35 93 95 02/17/17 12:30 93 93/59 L 95 02/17/17 12:25 93 95 02/17/17 12:20 94 98/58 L 94 02/17/17 12:15 96 93 02/17/17 12:10 109 H 90 L 02/17/17 12:05 102 H 100 02/17/17 12:00 92 97 02/17/17 11:55 88 100 02/17/17 11:50 89 22 100 Weight: Weight 02/15/17 02/16/17 02/17/17 23:59 23:59 23:59 Weight (kg) 68.039 kg 68.039 kg Intake & Output: Intake and Output Totals x24h 02/15/17 02/16/17 02/17/17 23:59 23:59 23:59 Intake Total 2384 1243 Output Total 1623 8790 Balance 759 -6417 - Lab Results Lab Results: 02/17/17 11:11 02/17/17 11:11 Other Lab Results: Lab Results x24hrs 02/17/17 02/17/17 02/17/17 Range/Units 13:49 12:50 12:50 WBC (4.8-10.8) x10^3/uL RBC (4.20-5.40) 10^6/uL Hgb (12.0-16.0) g/dL Hct (37.0-47.0) % MCV (81.0-99.0) fL MCH (27.0-31.0) pg MCHC (32.0-36.0) g/dL RDW (12.0-15.0) % Plt Count (130-450) 10^3/uL MPV (7.9-10.8) fL Neut # (1.5-6.6) 10^3/uL Lymph # (1.5-3.5) 10^3/uL [place] # (0.0-1.0) 10^3/uL Eos # (0.0-0.7) 10^3/uL Baso # (0.0-0.1) 10^3/uL Absolute Nucleated RBC x10^3/uL Nucleated RBCs /100WBC Manual Slide Review WBC Morphology (NORMAL) Platelet Estimate (NORMAL) Platelet Morphology (NORMAL) RBC Morph Micro Appear (NORMAL) Fibrinogen (220-496) mg/dL Sodium (135-145) mmol/L Potassium (3.5-5.0) mmol/L Chloride (101-111) mmol/L Carbon Dioxide (21-32) mmol/L Anion Gap (6-13) BUN (6-20) mg/dL Creatinine (0.4-1.0) mg/dL Estimated GFR (MDRD) (>89) Glucose (70-100) mg/dL Uric Acid (2.6-7.2) mg/dL Calcium (8.5-10.3) mg/dL Magnesium 3.7 H (1.7-2.8) mg/dL Total Bilirubin (0.2-1.0) mg/dL AST (10-42) IU/L ALT (10-60) IU/L Alkaline Phosphatase (42-121) IU/L Lactate Dehydrogenase (91-225) IU/L Total Protein (6.7-8.2) g/dL Albumin (3.2-5.5) g/dL Globulin (2.1-4.2) g/dL Albumin/Globulin Ratio (1.0-2.2) Urine Creatinine 47.4 mg/dL Ur Total Protein Timed 21 mg/dL Protein/Creatinin Ratio 0.4 H (<=0.2) Urine Opiates Screen NEGATIVE (NEGATIVE) Ur Oxycodone Screen POSITIVE H (NEGATIVE) Urine Methadone Screen NEGATIVE (NEGATIVE) Ur Propoxyphene Screen NEGATIVE (NEGATIVE) Ur Barbiturates Screen NEGATIVE (NEGATIVE) Ur Tricyclics Screen NEGATIVE (NEGATIVE) Ur Phencyclidine Scrn NEGATIVE (NEGATIVE) Ur Amphetamine Screen NEGATIVE (NEGATIVE) U Methamphetamines Scrn NEGATIVE (NEGATIVE) U Benzodiazepines Scrn NEGATIVE (NEGATIVE) Urine Cocaine Screen NEGATIVE (NEGATIVE) U Cannabinoids Screen NEGATIVE (NEGATIVE) 02/17/17 02/17/17 02/17/17 Range/Units 11:11 11:11 11:11 WBC (4.8-10.8) x10^3/uL RBC (4.20-5.40) 10^6/uL Hgb (12.0-16.0) g/dL Hct (37.0-47.0) % MCV (81.0-99.0) fL MCH (27.0-31.0) pg MCHC (32.0-36.0) g/dL RDW (12.0-15.0) % Plt Count (130-450) 10^3/uL MPV (7.9-10.8) fL Neut # (1.5-6.6) 10^3/uL Lymph # (1.5-3.5) 10^3/uL [place] # (0.0-1.0) 10^3/uL Eos # (0.0-0.7) 10^3/uL Baso # (0.0-0.1) 10^3/uL Absolute Nucleated RBC x10^3/uL Nucleated RBCs /100WBC Manual Slide Review WBC Morphology (NORMAL) Platelet Estimate (NORMAL) Platelet Morphology (NORMAL) RBC Morph Micro Appear (NORMAL) Fibrinogen 697 H (220-496) mg/dL Sodium 139 (135-145) mmol/L Potassium 3.9 (3.5-5.0) mmol/L Chloride 104 (101-111) mmol/L Carbon Dioxide 19 L (21-32) mmol/L Anion Gap 16.0 H (6-13) BUN 11 (6-20) mg/dL Creatinine 0.9 (0.4-1.0) mg/dL Estimated GFR (MDRD) 89 (>89) Glucose 114 H (70-100) mg/dL Uric Acid (2.6-7.2) mg/dL Calcium 8.7 (8.5-10.3) mg/dL Magnesium 1.7 (1.7-2.8) mg/dL Total Bilirubin 0.4 (0.2-1.0) mg/dL AST 54 H (10-42) IU/L ALT 17 (10-60) IU/L Alkaline Phosphatase 94 (42-121) IU/L Lactate Dehydrogenase (91-225) IU/L Total Protein 6.0 L (6.7-8.2) g/dL Albumin 2.5 L (3.2-5.5) g/dL Globulin 3.5 (2.1-4.2) g/dL Albumin/Globulin Ratio 0.7 L (1.0-2.2) Urine Creatinine mg/dL Ur Total Protein Timed mg/dL Protein/Creatinin Ratio (<=0.2) Urine Opiates Screen (NEGATIVE) Ur Oxycodone Screen (NEGATIVE) Urine Methadone Screen (NEGATIVE) Ur Propoxyphene Screen (NEGATIVE) Ur Barbiturates Screen (NEGATIVE) Ur Tricyclics Screen (NEGATIVE) Ur Phencyclidine Scrn (NEGATIVE) Ur Amphetamine Screen (NEGATIVE) U Methamphetamines Scrn (NEGATIVE) U Benzodiazepines Scrn (NEGATIVE) Urine Cocaine Screen (NEGATIVE) U Cannabinoids Screen (NEGATIVE) 02/17/17 02/17/17 02/17/17 Range/Units 11:11 11:11 11:11 WBC 28.0 H (4.8-10.8) x10^3/uL RBC 3.44 L (4.20-5.40) 10^6/uL Hgb 11.7 L (12.0-16.0) g/dL Hct 35.8 L (37.0-47.0) % MCV 104.2 H (81.0-99.0) fL MCH 34.1 H (27.0-31.0) pg MCHC 32.7 (32.0-36.0) g/dL RDW 13.5 (12.0-15.0) % Plt Count 239 (130-450) 10^3/uL MPV 8.8 (7.9-10.8) fL Neut # 19.5 H (1.5-6.6) 10^3/uL Lymph # 6.5 H (1.5-3.5) 10^3/uL [place] # 1.7 H (0.0-1.0) 10^3/uL Eos # 0.1 (0.0-0.7) 10^3/uL Baso # 0.1 (0.0-0.1) 10^3/uL Absolute Nucleated RBC 0.01 x10^3/uL Nucleated RBCs 0.0 /100WBC Manual Slide Review Indicated WBC Morphology NORMAL APPEARANCE (NORMAL) Platelet Estimate NORMAL (130-450,000) (NORMAL) Platelet Morphology NORMAL APPEARANCE (NORMAL) RBC Morph Micro Appear NORMAL APPEARANCE (NORMAL) Fibrinogen (220-496) mg/dL Sodium (135-145) mmol/L Potassium (3.5-5.0) mmol/L Chloride (101-111) mmol/L Carbon Dioxide (21-32) mmol/L Anion Gap (6-13) BUN (6-20) mg/dL Creatinine (0.4-1.0) mg/dL Estimated GFR (MDRD) (>89) Glucose (70-100) mg/dL Uric Acid 5.8 (2.6-7.2) mg/dL Calcium (8.5-10.3) mg/dL Magnesium (1.7-2.8) mg/dL Total Bilirubin (0.2-1.0) mg/dL AST 54 H (10-42) IU/L ALT (10-60) IU/L Alkaline Phosphatase (42-121) IU/L Lactate Dehydrogenase 228 H (91-225) IU/L Total Protein (6.7-8.2) g/dL Albumin (3.2-5.5) g/dL Globulin (2.1-4.2) g/dL Albumin/Globulin Ratio (1.0-2.2) Urine Creatinine mg/dL Ur Total Protein Timed mg/dL Protein/Creatinin Ratio (<=0.2) Urine Opiates Screen (NEGATIVE) Ur Oxycodone Screen (NEGATIVE) Urine Methadone Screen (NEGATIVE) Ur Propoxyphene Screen (NEGATIVE) Ur Barbiturates Screen (NEGATIVE) Ur Tricyclics Screen (NEGATIVE) Ur Phencyclidine Scrn (NEGATIVE) Ur Amphetamine Screen (NEGATIVE) U Methamphetamines Scrn (NEGATIVE) U Benzodiazepines Scrn (NEGATIVE) Urine Cocaine Screen (NEGATIVE) U Cannabinoids Screen (NEGATIVE) 02/17/17 Range/Units 07:10 WBC 17.2 H (4.8-10.8) x10^3/uL RBC 2.93 L (4.20-5.40) 10^6/uL Hgb 10.0 L (12.0-16.0) g/dL Hct 29.7 L (37.0-47.0) % MCV 101.3 H (81.0-99.0) fL MCH 34.2 H (27.0-31.0) pg MCHC 33.8 (32.0-36.0) g/dL RDW 12.9 (12.0-15.0) % Plt Count 182 (130-450) 10^3/uL MPV 8.4 (7.9-10.8) fL Neut # 13.9 H (1.5-6.6) 10^3/uL Lymph # 2.2 (1.5-3.5) 10^3/uL [place] # 1.0 (0.0-1.0) 10^3/uL Eos # 0.0 (0.0-0.7) 10^3/uL Baso # 0.0 (0.0-0.1) 10^3/uL Absolute Nucleated RBC 0.01 x10^3/uL Nucleated RBCs 0.1 /100WBC Manual Slide Review WBC Morphology (NORMAL) Platelet Estimate (NORMAL) Platelet Morphology (NORMAL) RBC Morph Micro Appear (NORMAL) Fibrinogen (220-496) mg/dL Sodium (135-145) mmol/L Potassium (3.5-5.0) mmol/L Chloride (101-111) mmol/L Carbon Dioxide (21-32) mmol/L Anion Gap (6-13) BUN (6-20) mg/dL Creatinine (0.4-1.0) mg/dL Estimated GFR (MDRD) (>89) Glucose (70-100) mg/dL Uric Acid (2.6-7.2) mg/dL Calcium (8.5-10.3) mg/dL Magnesium (1.7-2.8) mg/dL Total Bilirubin (0.2-1.0) mg/dL AST (10-42) IU/L ALT (10-60) IU/L Alkaline Phosphatase (42-121) IU/L Lactate Dehydrogenase (91-225) IU/L Total Protein (6.7-8.2) g/dL Albumin (3.2-5.5) g/dL Globulin (2.1-4.2) g/dL Albumin/Globulin Ratio (1.0-2.2) Urine Creatinine mg/dL Ur Total Protein Timed mg/dL Protein/Creatinin Ratio (<=0.2) Urine Opiates Screen (NEGATIVE) Ur Oxycodone Screen (NEGATIVE) Urine Methadone Screen (NEGATIVE) Ur Propoxyphene Screen (NEGATIVE) Ur Barbiturates Screen (NEGATIVE) Ur Tricyclics Screen (NEGATIVE) Ur Phencyclidine Scrn (NEGATIVE) Ur Amphetamine Screen (NEGATIVE) U Methamphetamines Scrn (NEGATIVE) U Benzodiazepines Scrn (NEGATIVE) Urine Cocaine Screen (NEGATIVE) U Cannabinoids Screen (NEGATIVE) - Current Medications Current Medications: Current Medications Generic Name Dose Route Start Last Admin Trade Name Freq PRN Reason Stop Dose Admin Acetaminophen 1,000 mg 02/16/17 09:00 02/17/17 14:50 Tylenol PO 1,000 mg Q8H SARAH Administration Docusate Sodium 100 mg 02/16/17 09:00 02/17/17 08:55 Colace 100mg Capsule PO 100 mg BID SARAH Administration Lactated Ringer's 1,000 mls @ 100 mls/hr 02/16/17 09:00 02/17/17 15:28 Lr IV 30 mls/hr .Q10H SARAH Administration Ibuprofen 600 mg 02/17/17 09:00 02/17/17 18:14 Motrin PO 600 mg Q6H SARAH Administration Oxycodone HCl 5 - 10 mg 02/16/17 14:40 02/17/17 04:20 Roxicodone PO 10 mg Q4HR PRN Administration PAIN Simethicone 80 mg 02/16/17 14:00 02/17/17 08:54 Mylicon PO 80 mg TID SARAH Administration Sodium Chloride 10 ml 02/16/17 08:41 02/16/17 15:19 Normal Saline Flush 0.9% IVP 10 ml PRN PRN Administration NEEDED PER PROVIDER ORDERS Sodium Chloride 10 ml 02/16/17 14:00 02/17/17 04:21 Normal Saline Flush 0.9% IVP 10 ml Q8HR SARAH Administration
--- NOTE | 2017-02-17 19:51 | PROVIDER PROGRESS NOTE ---
Subjective - General Admit Date: 02/15/17 Procedure Date: 02/16/17 Post Op Days: 1 Procedure Performed: PLTC/S - Review of Systems Wound/Incisions: positive: Healing well, Other (Re inspected after Sz and wound dry & intact) Drain Type: Saab Drain Output Description: 750 cc last 8 hours General: positive: No symptoms (Pian 4/10. Sleepy this AM), Other HEENT: positive: Other (Tongue & oral bite wound post siezure) Pulmonary: positive: No symptoms Cardiovascular: positive: No symptoms Gastrointestinal: positive: No symptoms Genitourinary: positive: No symptoms (voiding), Other (Min Nonfoul Lochia) Musculoskeletal: positive: Other (No edema; Muscle stiffness post ictal) Skin: positive: No symptoms Neurological: Psychiatric: positive: No symptoms, Other All Other Systems: positive: Reviewed and negative Objective - Patient Data Vital Signs: Vital Signs x48h Temp Pulse Resp BP Pulse Ox 02/17/17 19:20 97.3 F L 78 18 94/59 L 02/17/17 18:00 77 16 100/59 L 97 02/17/17 17:30 79 16 94/67 97 02/17/17 17:00 82 16 94/68 98 02/17/17 16:30 74 16 97/65 99 02/17/17 16:00 76 16 93/62 100 02/17/17 15:30 80 16 105/60 100 02/17/17 15:00 97.7 F 81 18 105/68 99 02/17/17 13:25 81 97 02/17/17 13:20 87 96 02/17/17 13:15 88 95 02/17/17 13:10 91 97 02/17/17 13:05 81 97 02/17/17 13:00 86 93/64 97 02/17/17 12:55 85 96 02/17/17 12:50 87 96 02/17/17 12:45 88 96 02/17/17 12:40 90 96 02/17/17 12:35 93 95 02/17/17 12:30 93 93/59 L 95 02/17/17 12:25 93 95 02/17/17 12:20 94 98/58 L 94 02/17/17 12:15 96 93 02/17/17 12:10 109 H 90 L 02/17/17 12:05 102 H 100 02/17/17 12:00 92 97 02/17/17 11:55 88 100 02/17/17 11:50 89 22 100 Weight: Weight 02/15/17 02/16/17 02/17/17 23:59 23:59 23:59 Weight (kg) 68.039 kg 68.039 kg Intake & Output: Intake and Output Totals x24h 02/15/17 02/16/17 02/17/17 23:59 23:59 23:59 Intake Total 2384 1243 Output Total 1627 1750 Balance 239 -4347 - Lab Results Lab Results: 02/17/17 11:11 02/17/17 11:11 Other Lab Results: Lab Results x24hrs 02/17/17 02/17/17 02/17/17 Range/Units 13:49 12:50 12:50 WBC (4.8-10.8) x10^3/uL RBC (4.20-5.40) 10^6/uL Hgb (12.0-16.0) g/dL Hct (37.0-47.0) % MCV (81.0-99.0) fL MCH (27.0-31.0) pg MCHC (32.0-36.0) g/dL RDW (12.0-15.0) % Plt Count (130-450) 10^3/uL MPV (7.9-10.8) fL Neut # (1.5-6.6) 10^3/uL Lymph # (1.5-3.5) 10^3/uL [place] # (0.0-1.0) 10^3/uL Eos # (0.0-0.7) 10^3/uL Baso # (0.0-0.1) 10^3/uL Absolute Nucleated RBC x10^3/uL Nucleated RBCs /100WBC Manual Slide Review WBC Morphology (NORMAL) Platelet Estimate (NORMAL) Platelet Morphology (NORMAL) RBC Morph Micro Appear (NORMAL) Fibrinogen (220-496) mg/dL Sodium (135-145) mmol/L Potassium (3.5-5.0) mmol/L Chloride (101-111) mmol/L Carbon Dioxide (21-32) mmol/L Anion Gap (6-13) BUN (6-20) mg/dL Creatinine (0.4-1.0) mg/dL Estimated GFR (MDRD) (>89) Glucose (70-100) mg/dL Uric Acid (2.6-7.2) mg/dL Calcium (8.5-10.3) mg/dL Magnesium 3.7 H (1.7-2.8) mg/dL Total Bilirubin (0.2-1.0) mg/dL AST (10-42) IU/L ALT (10-60) IU/L Alkaline Phosphatase (42-121) IU/L Lactate Dehydrogenase (91-225) IU/L Total Protein (6.7-8.2) g/dL Albumin (3.2-5.5) g/dL Globulin (2.1-4.2) g/dL Albumin/Globulin Ratio (1.0-2.2) Urine Creatinine 47.4 mg/dL Ur Total Protein Timed 21 mg/dL Protein/Creatinin Ratio 0.4 H (<=0.2) Urine Opiates Screen NEGATIVE (NEGATIVE) Ur Oxycodone Screen POSITIVE H (NEGATIVE) Urine Methadone Screen NEGATIVE (NEGATIVE) Ur Propoxyphene Screen NEGATIVE (NEGATIVE) Ur Barbiturates Screen NEGATIVE (NEGATIVE) Ur Tricyclics Screen NEGATIVE (NEGATIVE) Ur Phencyclidine Scrn NEGATIVE (NEGATIVE) Ur Amphetamine Screen NEGATIVE (NEGATIVE) U Methamphetamines Scrn NEGATIVE (NEGATIVE) U Benzodiazepines Scrn NEGATIVE (NEGATIVE) Urine Cocaine Screen NEGATIVE (NEGATIVE) U Cannabinoids Screen NEGATIVE (NEGATIVE) 02/17/17 02/17/17 02/17/17 Range/Units 11:11 11:11 11:11 WBC (4.8-10.8) x10^3/uL RBC (4.20-5.40) 10^6/uL Hgb (12.0-16.0) g/dL Hct (37.0-47.0) % MCV (81.0-99.0) fL MCH (27.0-31.0) pg MCHC (32.0-36.0) g/dL RDW (12.0-15.0) % Plt Count (130-450) 10^3/uL MPV (7.9-10.8) fL Neut # (1.5-6.6) 10^3/uL Lymph # (1.5-3.5) 10^3/uL [place] # (0.0-1.0) 10^3/uL Eos # (0.0-0.7) 10^3/uL Baso # (0.0-0.1) 10^3/uL Absolute Nucleated RBC x10^3/uL Nucleated RBCs /100WBC Manual Slide Review WBC Morphology (NORMAL) Platelet Estimate (NORMAL) Platelet Morphology (NORMAL) RBC Morph Micro Appear (NORMAL) Fibrinogen 697 H (220-496) mg/dL Sodium 139 (135-145) mmol/L Potassium 3.9 (3.5-5.0) mmol/L Chloride 104 (101-111) mmol/L Carbon Dioxide 19 L (21-32) mmol/L Anion Gap 16.0 H (6-13) BUN 11 (6-20) mg/dL Creatinine 0.9 (0.4-1.0) mg/dL Estimated GFR (MDRD) 89 (>89) Glucose 114 H (70-100) mg/dL Uric Acid (2.6-7.2) mg/dL Calcium 8.7 (8.5-10.3) mg/dL Magnesium 1.7 (1.7-2.8) mg/dL Total Bilirubin 0.4 (0.2-1.0) mg/dL AST 54 H (10-42) IU/L ALT 17 (10-60) IU/L Alkaline Phosphatase 94 (42-121) IU/L Lactate Dehydrogenase (91-225) IU/L Total Protein 6.0 L (6.7-8.2) g/dL Albumin 2.5 L (3.2-5.5) g/dL Globulin 3.5 (2.1-4.2) g/dL Albumin/Globulin Ratio 0.7 L (1.0-2.2) Urine Creatinine mg/dL Ur Total Protein Timed mg/dL Protein/Creatinin Ratio (<=0.2) Urine Opiates Screen (NEGATIVE) Ur Oxycodone Screen (NEGATIVE) Urine Methadone Screen (NEGATIVE) Ur Propoxyphene Screen (NEGATIVE) Ur Barbiturates Screen (NEGATIVE) Ur Tricyclics Screen (NEGATIVE) Ur Phencyclidine Scrn (NEGATIVE) Ur Amphetamine Screen (NEGATIVE) U Methamphetamines Scrn (NEGATIVE) U Benzodiazepines Scrn (NEGATIVE) Urine Cocaine Screen (NEGATIVE) U Cannabinoids Screen (NEGATIVE) 02/17/17 02/17/17 02/17/17 Range/Units 11:11 11:11 11:11 WBC 28.0 H (4.8-10.8) x10^3/uL RBC 3.44 L (4.20-5.40) 10^6/uL Hgb 11.7 L (12.0-16.0) g/dL Hct 35.8 L (37.0-47.0) % MCV 104.2 H (81.0-99.0) fL MCH 34.1 H (27.0-31.0) pg MCHC 32.7 (32.0-36.0) g/dL RDW 13.5 (12.0-15.0) % Plt Count 239 (130-450) 10^3/uL MPV 8.8 (7.9-10.8) fL Neut # 19.5 H (1.5-6.6) 10^3/uL Lymph # 6.5 H (1.5-3.5) 10^3/uL [place] # 1.7 H (0.0-1.0) 10^3/uL Eos # 0.1 (0.0-0.7) 10^3/uL Baso # 0.1 (0.0-0.1) 10^3/uL Absolute Nucleated RBC 0.01 x10^3/uL Nucleated RBCs 0.0 /100WBC Manual Slide Review Indicated WBC Morphology NORMAL APPEARANCE (NORMAL) Platelet Estimate NORMAL (130-450,000) (NORMAL) Platelet Morphology NORMAL APPEARANCE (NORMAL) RBC Morph Micro Appear NORMAL APPEARANCE (NORMAL) Fibrinogen (220-496) mg/dL Sodium (135-145) mmol/L Potassium (3.5-5.0) mmol/L Chloride (101-111) mmol/L Carbon Dioxide (21-32) mmol/L Anion Gap (6-13) BUN (6-20) mg/dL Creatinine (0.4-1.0) mg/dL Estimated GFR (MDRD) (>89) Glucose (70-100) mg/dL Uric Acid 5.8 (2.6-7.2) mg/dL Calcium (8.5-10.3) mg/dL Magnesium (1.7-2.8) mg/dL Total Bilirubin (0.2-1.0) mg/dL AST 54 H (10-42) IU/L ALT (10-60) IU/L Alkaline Phosphatase (42-121) IU/L Lactate Dehydrogenase 228 H (91-225) IU/L Total Protein (6.7-8.2) g/dL Albumin (3.2-5.5) g/dL Globulin (2.1-4.2) g/dL Albumin/Globulin Ratio (1.0-2.2) Urine Creatinine mg/dL Ur Total Protein Timed mg/dL Protein/Creatinin Ratio (<=0.2) Urine Opiates Screen (NEGATIVE) Ur Oxycodone Screen (NEGATIVE) Urine Methadone Screen (NEGATIVE) Ur Propoxyphene Screen (NEGATIVE) Ur Barbiturates Screen (NEGATIVE) Ur Tricyclics Screen (NEGATIVE) Ur Phencyclidine Scrn (NEGATIVE) Ur Amphetamine Screen (NEGATIVE) U Methamphetamines Scrn (NEGATIVE) U Benzodiazepines Scrn (NEGATIVE) Urine Cocaine Screen (NEGATIVE) U Cannabinoids Screen (NEGATIVE) 02/17/17 Range/Units 07:10 WBC 17.2 H (4.8-10.8) x10^3/uL RBC 2.93 L (4.20-5.40) 10^6/uL Hgb 10.0 L (12.0-16.0) g/dL Hct 29.7 L (37.0-47.0) % MCV 101.3 H (81.0-99.0) fL MCH 34.2 H (27.0-31.0) pg MCHC 33.8 (32.0-36.0) g/dL RDW 12.9 (12.0-15.0) % Plt Count 182 (130-450) 10^3/uL MPV 8.4 (7.9-10.8) fL Neut # 13.9 H (1.5-6.6) 10^3/uL Lymph # 2.2 (1.5-3.5) 10^3/uL [place] # 1.0 (0.0-1.0) 10^3/uL Eos # 0.0 (0.0-0.7) 10^3/uL Baso # 0.0 (0.0-0.1) 10^3/uL Absolute Nucleated RBC 0.01 x10^3/uL Nucleated RBCs 0.1 /100WBC Manual Slide Review WBC Morphology (NORMAL) Platelet Estimate (NORMAL) Platelet Morphology (NORMAL) RBC Morph Micro Appear (NORMAL) Fibrinogen (220-496) mg/dL Sodium (135-145) mmol/L Potassium (3.5-5.0) mmol/L Chloride (101-111) mmol/L Carbon Dioxide (21-32) mmol/L Anion Gap (6-13) BUN (6-20) mg/dL Creatinine (0.4-1.0) mg/dL Estimated GFR (MDRD) (>89) Glucose (70-100) mg/dL Uric Acid (2.6-7.2) mg/dL Calcium (8.5-10.3) mg/dL Magnesium (1.7-2.8) mg/dL Total Bilirubin (0.2-1.0) mg/dL AST (10-42) IU/L ALT (10-60) IU/L Alkaline Phosphatase (42-121) IU/L Lactate Dehydrogenase (91-225) IU/L Total Protein (6.7-8.2) g/dL Albumin (3.2-5.5) g/dL Globulin (2.1-4.2) g/dL Albumin/Globulin Ratio (1.0-2.2) Urine Creatinine mg/dL Ur Total Protein Timed mg/dL Protein/Creatinin Ratio (<=0.2) Urine Opiates Screen (NEGATIVE) Ur Oxycodone Screen (NEGATIVE) Urine Methadone Screen (NEGATIVE) Ur Propoxyphene Screen (NEGATIVE) Ur Barbiturates Screen (NEGATIVE) Ur Tricyclics Screen (NEGATIVE) Ur Phencyclidine Scrn (NEGATIVE) Ur Amphetamine Screen (NEGATIVE) U Methamphetamines Scrn (NEGATIVE) U Benzodiazepines Scrn (NEGATIVE) Urine Cocaine Screen (NEGATIVE) U Cannabinoids Screen (NEGATIVE) - Current Medications Current Medications: Current Medications Generic Name Dose Route Start Last Admin Trade Name Freq PRN Reason Stop Dose Admin Acetaminophen 1,000 mg 02/16/17 09:00 02/17/17 14:50 Tylenol PO 1,000 mg Q8H SARAH Administration Docusate Sodium 100 mg 02/16/17 09:00 02/17/17 08:55 Colace 100mg Capsule PO 100 mg BID SARAH Administration Lactated Ringer's 1,000 mls @ 100 mls/hr 08/31/17 09:00 02/17/17 15:28 Lr IV 30 mls/hr .Q10H SARAH Administration Ibuprofen 600 mg 02/17/17 09:00 02/17/17 18:14 Motrin PO 600 mg Q6H SARAH Administration Oxycodone HCl 5 - 10 mg 02/16/17 14:40 02/17/17 04:20 Roxicodone PO 10 mg Q4HR PRN Administration PAIN Simethicone 80 mg 02/16/17 14:00 02/17/17 08:54 Mylicon PO 80 mg TID SARAH Administration Sodium Chloride 10 ml 02/16/17 08:41 02/16/17 15:19 Normal Saline Flush 0.9% IVP 10 ml PRN PRN Administration NEEDED PER PROVIDER ORDERS Sodium Chloride 10 ml 02/16/17 14:00 02/17/17 04:21 Normal Saline Flush 0.9% IVP 10 ml Q8HR SARAH Administration Physical Exam - Physical Exam General: positive: No acute distress, Alert HEENT: positive: Moist mucous membranes Neck: positive: Supple w/out meningeal sx Cardiac: positive: Regular Rate, Murmur Present Resipratory: positive: Clear to ausultation floridalma Abdomen: positive: Surgical Scars (Dry & Intact) Female : positive: Enlarged uterus (18 wk size) Extremities: positive: No pedal edema, Non tender, Pedal Pulses Present Skin: positive: Warm and dry Neurologic: positive: Alert and Oriented X 3, Normal motor/no weakness, Normal Sensation, Normal Speech PSYCH: positive: Flat affect (Normal Mood) Assessment/Plan - Assessment/Plan Assessment: Mrs Kendall is recovering w supportive care. She is diuresing now. Mg drip at 2.75 g / h and await level. Dr Smith's report is appreciated. Plan: Continue MG x 48 hours. Observation and supportive care
[2017-02-17] MEDS ORDERED: PHENAZOPYRIDINE 100 MG TABLET PO SCH (22:00)
[2017-02-18] MEDS: SIMETHICONE CHEW 80 MG TABLET PO SCH ×3 (06:02→19:46)
[2017-02-18] MEDS: IBUPROFEN 600 MG TABLET PO SCH ×3 (06:02→19:46)
[2017-02-18 06:58] LABS: BASOPHILS % (AUTO) 0.3 %; EOSINOPHILS # (AUTO) 0.2 10^3/uL (0.0-0.7); EOSINOPHILS % (AUTO) 1.1 %; HGB - HEMOGLOBIN 10.9 g/dL (12.0-16.0); LYMPHOCYTES # (AUTO) 2.2 10^3/uL (1.5-3.5); LYMPHOCYTES % (AUTO) 16.8 %; MEAN CORPUSCULAR HEMOGLOBIN 33.9 pg (27.0-31.0); MEAN CORPUSCULAR HGB CONC 32.9 g/dL (32.0-36.0); MEAN CORPUSCULAR VOLUME 102.8 fL (81.0-99.0); MEAN PLATELET VOLUME 8.2 fL (7.9-10.8); MONOCYTES # (AUTO) 0.6 10^3/uL (0.0-1.0); MONOCYTES % (AUTO) 4.8 %; NEUTROPHILS # (AUTO) 10.2 10^3/uL (1.5-6.6); RED BLOOD COUNT 3.21 10^6/uL (4.20-5.40); RED CELL DISTRIBUTION WIDTH 13.3 % (12.0-15.0); UNCORRECTED WHITE BLOOD COUNT 13.2 x10^3/uL; WHITE BLOOD COUNT 13.2 x10^3/uL (4.8-10.8)
[2017-02-18 07:56] LABS: FOLATE 16.41 ng/mL (5.90 - >24.8)
[2017-02-18 08:04] LABS: THYROID STIMULATING HORMONE 1.31 uIU/mL (0.34-5.60)
[2017-02-18] MEDS: SODIUM CHLORIDE FLUSH 0.9% 10 ML SYRINGE IVP SCH (08:37)
[2017-02-18] MEDS: DOCUSATE SODIUM 100 MG CAPSULE PO SCH ×2 (09:28→19:46)
[2017-02-18] MEDS: ACETAMINOPHEN 500 MG TABLET PO SCH ×2 (09:28→18:39)
--- NOTE | 2017-02-18 10:14 | PROVIDER PROGRESS NOTE ---
Subjective - General Admit Date: 02/15/17 Procedure Date: 02/16/17 Post Op Days: 2 Procedure Performed: PLTC/S - Review of Systems Wound/Incisions: positive: Healing well, Other (wound dry & intact) Drain Type: Saab General: positive: No symptoms (Pian 4/10. Sleepy this AM), Fatigue, Other HEENT: positive: Visual changes (Blurred vision. No Scomatoma or Scintilation), Other (Tongue & oral bite wound post siezure) Pulmonary: positive: No symptoms Cardiovascular: positive: No symptoms Gastrointestinal: positive: No symptoms, Flatus, Other Genitourinary: positive: No symptoms (voiding), Other (Min Nonfoul Lochia) Musculoskeletal: positive: Other (No edema; Diffuse Muscle weakness - Mg Effect) Skin: positive: No symptoms Neurological: Psychiatric: positive: No symptoms, Other All Other Systems: positive: Reviewed and negative - Other Other Information/Narrative: Patient is beginning to feel better except for Mg effects. She wants to nurse. Objective - Patient Data Vital Signs: Vital Signs x48h Temp Pulse Resp BP Pulse Ox 02/18/17 07:26 97.7 F 81 14 108/73 93 02/18/17 06:00 71 18 87/64 L 97 02/18/17 05:00 71 16 89/60 L 98 02/18/17 04:00 68 16 87/52 L 98 02/18/17 03:00 70 16 87/52 L 97 Weight: Weight 02/16/17 02/17/17 02/18/17 23:59 23:59 23:59 Weight (kg) 68.039 kg Intake & Output: Intake and Output Totals x24h 02/16/17 02/17/17 02/18/17 23:59 23:59 23:59 Intake Total 2384 1749 1448 Output Total 1625 2854 630 Balance 759 -1105 818 - Lab Results Lab Results: 02/18/17 06:40 02/17/17 11:11 Other Lab Results: Lab Results x24hrs 02/18/17 02/18/17 02/18/17 Range/Units 06:40 06:40 06:40 WBC (4.8-10.8) x10^3/uL RBC (4.20-5.40) 10^6/uL Hgb (12.0-16.0) g/dL Hct (37.0-47.0) % MCV (81.0-99.0) fL MCH (27.0-31.0) pg MCHC (32.0-36.0) g/dL RDW (12.0-15.0) % Plt Count (130-450) 10^3/uL MPV (7.9-10.8) fL Neut # (1.5-6.6) 10^3/uL Lymph # (1.5-3.5) 10^3/uL [place] # (0.0-1.0) 10^3/uL Eos # (0.0-0.7) 10^3/uL Baso # (0.0-0.1) 10^3/uL Absolute Nucleated RBC x10^3/uL Nucleated RBCs /100WBC Manual Slide Review WBC Morphology (NORMAL) Platelet Estimate (NORMAL) Platelet Morphology (NORMAL) RBC Morph Micro Appear (NORMAL) ESR 77 H (0-20) mm/Hr Fibrinogen (220-496) mg/dL Sodium (135-145) mmol/L Potassium (3.5-5.0) mmol/L Chloride (101-111) mmol/L Carbon Dioxide (21-32) mmol/L Anion Gap (6-13) BUN (6-20) mg/dL Creatinine (0.4-1.0) mg/dL Estimated GFR (MDRD) (>89) Glucose (70-100) mg/dL Uric Acid (2.6-7.2) mg/dL Calcium (8.5-10.3) mg/dL Magnesium 6.9 H* (1.7-2.8) mg/dL Total Bilirubin (0.2-1.0) mg/dL AST (10-42) IU/L ALT (10-60) IU/L Alkaline Phosphatase (42-121) IU/L Lactate Dehydrogenase (91-225) IU/L C-Reactive Protein (0-1.0) mg/dL Total Protein (6.7-8.2) g/dL Albumin (3.2-5.5) g/dL Globulin (2.1-4.2) g/dL Albumin/Globulin Ratio (1.0-2.2) Vitamin B12 269 (180-914) pg/mL Folate 16.41 (5.90 - >24.8) ng/mL TSH 1.31 (0.34-5.60) uIU/mL Thyroxine (T4) 8.86 (6.09-12.23) ug/dL Urine Creatinine mg/dL Ur Total Protein Timed mg/dL Protein/Creatinin Ratio (<=0.2) Urine Opiates Screen (NEGATIVE) Ur Oxycodone Screen (NEGATIVE) Urine Methadone Screen (NEGATIVE) Ur Propoxyphene Screen (NEGATIVE) Ur Barbiturates Screen (NEGATIVE) Ur Tricyclics Screen (NEGATIVE) Ur Phencyclidine Scrn (NEGATIVE) Ur Amphetamine Screen (NEGATIVE) U Methamphetamines Scrn (NEGATIVE) U Benzodiazepines Scrn (NEGATIVE) Urine Cocaine Screen (NEGATIVE) U Cannabinoids Screen (NEGATIVE) 02/18/17 02/18/17 02/18/17 Range/Units 06:40 06:40 06:40 WBC 13.2 H (4.8-10.8) x10^3/uL RBC 3.21 L (4.20-5.40) 10^6/uL Hgb 10.9 L (12.0-16.0) g/dL Hct 33.0 L (37.0-47.0) % MCV 102.8 H (81.0-99.0) fL MCH 33.9 H (27.0-31.0) pg MCHC 32.9 (32.0-36.0) g/dL RDW 13.3 (12.0-15.0) % Plt Count 206 (130-450) 10^3/uL MPV 8.2 (7.9-10.8) fL Neut # 10.2 H (1.5-6.6) 10^3/uL Lymph # 2.2 (1.5-3.5) 10^3/uL [place] # 0.6 (0.0-1.0) 10^3/uL Eos # 0.2 (0.0-0.7) 10^3/uL Baso # 0.0 (0.0-0.1) 10^3/uL Absolute Nucleated RBC 0.00 x10^3/uL Nucleated RBCs 0.0 /100WBC Manual Slide Review WBC Morphology (NORMAL) Platelet Estimate (NORMAL) Platelet Morphology (NORMAL) RBC Morph Micro Appear (NORMAL) ESR (0-20) mm/Hr Fibrinogen (220-496) mg/dL Sodium (135-145) mmol/L Potassium (3.5-5.0) mmol/L Chloride (101-111) mmol/L Carbon Dioxide (21-32) mmol/L Anion Gap (6-13) BUN (6-20) mg/dL Creatinine (0.4-1.0) mg/dL Estimated GFR (MDRD) (>89) Glucose (70-100) mg/dL Uric Acid 6.0 (2.6-7.2) mg/dL Calcium (8.5-10.3) mg/dL Magnesium (1.7-2.8) mg/dL Total Bilirubin (0.2-1.0) mg/dL AST 23 (10-42) IU/L ALT (10-60) IU/L Alkaline Phosphatase (42-121) IU/L Lactate Dehydrogenase 192 (91-225) IU/L C-Reactive Protein 7.6 H (0-1.0) mg/dL Total Protein (6.7-8.2) g/dL Albumin (3.2-5.5) g/dL Globulin (2.1-4.2) g/dL Albumin/Globulin Ratio (1.0-2.2) Vitamin B12 (180-914) pg/mL Folate (5.90 - >24.8) ng/mL TSH (0.34-5.60) uIU/mL Thyroxine (T4) (6.09-12.23) ug/dL Urine Creatinine mg/dL Ur Total Protein Timed mg/dL Protein/Creatinin Ratio (<=0.2) Urine Opiates Screen (NEGATIVE) Ur Oxycodone Screen (NEGATIVE) Urine Methadone Screen (NEGATIVE) Ur Propoxyphene Screen (NEGATIVE) Ur Barbiturates Screen (NEGATIVE) Ur Tricyclics Screen (NEGATIVE) Ur Phencyclidine Scrn (NEGATIVE) Ur Amphetamine Screen (NEGATIVE) U Methamphetamines Scrn (NEGATIVE) U Benzodiazepines Scrn (NEGATIVE) Urine Cocaine Screen (NEGATIVE) U Cannabinoids Screen (NEGATIVE) 02/18/17 02/17/17 02/17/17 Range/Units 06:40 19:39 13:49 WBC (4.8-10.8) x10^3/uL RBC (4.20-5.40) 10^6/uL Hgb (12.0-16.0) g/dL Hct (37.0-47.0) % MCV (81.0-99.0) fL MCH (27.0-31.0) pg MCHC (32.0-36.0) g/dL RDW (12.0-15.0) % Plt Count (130-450) 10^3/uL MPV (7.9-10.8) fL Neut # (1.5-6.6) 10^3/uL Lymph # (1.5-3.5) 10^3/uL [place] # (0.0-1.0) 10^3/uL Eos # (0.0-0.7) 10^3/uL Baso # (0.0-0.1) 10^3/uL Absolute Nucleated RBC x10^3/uL Nucleated RBCs /100WBC Manual Slide Review WBC Morphology (NORMAL) Platelet Estimate (NORMAL) Platelet Morphology (NORMAL) RBC Morph Micro Appear (NORMAL) ESR (0-20) mm/Hr Fibrinogen 669 H (220-496) mg/dL Sodium (135-145) mmol/L Potassium (3.5-5.0) mmol/L Chloride (101-111) mmol/L Carbon Dioxide (21-32) mmol/L Anion Gap (6-13) BUN (6-20) mg/dL Creatinine (0.4-1.0) mg/dL Estimated GFR (MDRD) (>89) Glucose (70-100) mg/dL Uric Acid (2.6-7.2) mg/dL Calcium (8.5-10.3) mg/dL Magnesium 5.9 H* 3.7 H (1.7-2.8) mg/dL Total Bilirubin (0.2-1.0) mg/dL AST (10-42) IU/L ALT (10-60) IU/L Alkaline Phosphatase (42-121) IU/L Lactate Dehydrogenase (91-225) IU/L C-Reactive Protein (0-1.0) mg/dL Total Protein (6.7-8.2) g/dL Albumin (3.2-5.5) g/dL Globulin (2.1-4.2) g/dL Albumin/Globulin Ratio (1.0-2.2) Vitamin B12 (180-914) pg/mL Folate (5.90 - >24.8) ng/mL TSH (0.34-5.60) uIU/mL Thyroxine (T4) (6.09-12.23) ug/dL Urine Creatinine mg/dL Ur Total Protein Timed mg/dL Protein/Creatinin Ratio (<=0.2) Urine Opiates Screen (NEGATIVE) Ur Oxycodone Screen (NEGATIVE) Urine Methadone Screen (NEGATIVE) Ur Propoxyphene Screen (NEGATIVE) Ur Barbiturates Screen (NEGATIVE) Ur Tricyclics Screen (NEGATIVE) Ur Phencyclidine Scrn (NEGATIVE) Ur Amphetamine Screen (NEGATIVE) U Methamphetamines Scrn (NEGATIVE) U Benzodiazepines Scrn (NEGATIVE) Urine Cocaine Screen (NEGATIVE) U Cannabinoids Screen (NEGATIVE) 02/17/17 02/17/17 02/17/17 Range/Units 12:50 12:50 11:11 WBC (4.8-10.8) x10^3/uL RBC (4.20-5.40) 10^6/uL Hgb (12.0-16.0) g/dL Hct (37.0-47.0) % MCV (81.0-99.0) fL MCH (27.0-31.0) pg MCHC (32.0-36.0) g/dL RDW (12.0-15.0) % Plt Count (130-450) 10^3/uL MPV (7.9-10.8) fL Neut # (1.5-6.6) 10^3/uL Lymph # (1.5-3.5) 10^3/uL [place] # (0.0-1.0) 10^3/uL Eos # (0.0-0.7) 10^3/uL Baso # (0.0-0.1) 10^3/uL Absolute Nucleated RBC x10^3/uL Nucleated RBCs /100WBC Manual Slide Review WBC Morphology (NORMAL) Platelet Estimate (NORMAL) Platelet Morphology (NORMAL) RBC Morph Micro Appear (NORMAL) ESR (0-20) mm/Hr Fibrinogen (220-496) mg/dL Sodium (135-145) mmol/L Potassium (3.5-5.0) mmol/L Chloride (101-111) mmol/L Carbon Dioxide (21-32) mmol/L Anion Gap (6-13) BUN (6-20) mg/dL Creatinine (0.4-1.0) mg/dL Estimated GFR (MDRD) (>89) Glucose (70-100) mg/dL Uric Acid (2.6-7.2) mg/dL Calcium (8.5-10.3) mg/dL Magnesium 1.7 (1.7-2.8) mg/dL Total Bilirubin (0.2-1.0) mg/dL AST (10-42) IU/L ALT (10-60) IU/L Alkaline Phosphatase (42-121) IU/L Lactate Dehydrogenase (91-225) IU/L C-Reactive Protein (0-1.0) mg/dL Total Protein (6.7-8.2) g/dL Albumin (3.2-5.5) g/dL Globulin (2.1-4.2) g/dL Albumin/Globulin Ratio (1.0-2.2) Vitamin B12 (180-914) pg/mL Folate (5.90 - >24.8) ng/mL TSH (0.34-5.60) uIU/mL Thyroxine (T4) (6.09-12.23) ug/dL Urine Creatinine 47.4 mg/dL Ur Total Protein Timed 21 mg/dL Protein/Creatinin Ratio 0.4 H (<=0.2) Urine Opiates Screen NEGATIVE (NEGATIVE) Ur Oxycodone Screen POSITIVE H (NEGATIVE) Urine Methadone Screen NEGATIVE (NEGATIVE) Ur Propoxyphene Screen NEGATIVE (NEGATIVE) Ur Barbiturates Screen NEGATIVE (NEGATIVE) Ur Tricyclics Screen NEGATIVE (NEGATIVE) Ur Phencyclidine Scrn NEGATIVE (NEGATIVE) Ur Amphetamine Screen NEGATIVE (NEGATIVE) U Methamphetamines Scrn NEGATIVE (NEGATIVE) U Benzodiazepines Scrn NEGATIVE (NEGATIVE) Urine Cocaine Screen NEGATIVE (NEGATIVE) U Cannabinoids Screen NEGATIVE (NEGATIVE) 02/17/17 02/17/17 02/17/17 Range/Units 11:11 11:11 11:11 WBC (4.8-10.8) x10^3/uL RBC (4.20-5.40) 10^6/uL Hgb (12.0-16.0) g/dL Hct (37.0-47.0) % MCV (81.0-99.0) fL MCH (27.0-31.0) pg MCHC (32.0-36.0) g/dL RDW (12.0-15.0) % Plt Count (130-450) 10^3/uL MPV (7.9-10.8) fL Neut # (1.5-6.6) 10^3/uL Lymph # (1.5-3.5) 10^3/uL [place] # (0.0-1.0) 10^3/uL Eos # (0.0-0.7) 10^3/uL Baso # (0.0-0.1) 10^3/uL Absolute Nucleated RBC x10^3/uL Nucleated RBCs /100WBC Manual Slide Review WBC Morphology (NORMAL) Platelet Estimate (NORMAL) Platelet Morphology (NORMAL) RBC Morph Micro Appear (NORMAL) ESR (0-20) mm/Hr Fibrinogen 697 H (220-496) mg/dL Sodium 139 (135-145) mmol/L Potassium 3.9 (3.5-5.0) mmol/L Chloride 104 (101-111) mmol/L Carbon Dioxide 19 L (21-32) mmol/L Anion Gap 16.0 H (6-13) BUN 11 (6-20) mg/dL Creatinine 0.9 (0.4-1.0) mg/dL Estimated GFR (MDRD) 89 (>89) Glucose 114 H (70-100) mg/dL Uric Acid 5.8 (2.6-7.2) mg/dL Calcium 8.7 (8.5-10.3) mg/dL Magnesium (1.7-2.8) mg/dL Total Bilirubin 0.4 (0.2-1.0) mg/dL AST 54 H 54 H (10-42) IU/L ALT 17 (10-60) IU/L Alkaline Phosphatase 94 (42-121) IU/L Lactate Dehydrogenase (91-225) IU/L C-Reactive Protein (0-1.0) mg/dL Total Protein 6.0 L (6.7-8.2) g/dL Albumin 2.5 L (3.2-5.5) g/dL Globulin 3.5 (2.1-4.2) g/dL Albumin/Globulin Ratio 0.7 L (1.0-2.2) Vitamin B12 (180-914) pg/mL Folate (5.90 - >24.8) ng/mL TSH (0.34-5.60) uIU/mL Thyroxine (T4) (6.09-12.23) ug/dL Urine Creatinine mg/dL Ur Total Protein Timed mg/dL Protein/Creatinin Ratio (<=0.2) Urine Opiates Screen (NEGATIVE) Ur Oxycodone Screen (NEGATIVE) Urine Methadone Screen (NEGATIVE) Ur Propoxyphene Screen (NEGATIVE) Ur Barbiturates Screen (NEGATIVE) Ur Tricyclics Screen (NEGATIVE) Ur Phencyclidine Scrn (NEGATIVE) Ur Amphetamine Screen (NEGATIVE) U Methamphetamines Scrn (NEGATIVE) U Benzodiazepines Scrn (NEGATIVE) Urine Cocaine Screen (NEGATIVE) U Cannabinoids Screen (NEGATIVE) 02/17/17 02/17/17 Range/Units 11:11 11:11 WBC 28.0 H (4.8-10.8) x10^3/uL RBC 3.44 L (4.20-5.40) 10^6/uL Hgb 11.7 L (12.0-16.0) g/dL Hct 35.8 L (37.0-47.0) % MCV 104.2 H (81.0-99.0) fL MCH 34.1 H (27.0-31.0) pg MCHC 32.7 (32.0-36.0) g/dL RDW 13.5 (12.0-15.0) % Plt Count 239 (130-450) 10^3/uL MPV 8.8 (7.9-10.8) fL Neut # 19.5 H (1.5-6.6) 10^3/uL Lymph # 6.5 H (1.5-3.5) 10^3/uL [place] # 1.7 H (0.0-1.0) 10^3/uL Eos # 0.1 (0.0-0.7) 10^3/uL Baso # 0.1 (0.0-0.1) 10^3/uL Absolute Nucleated RBC 0.01 x10^3/uL Nucleated RBCs 0.0 /100WBC Manual Slide Review Indicated WBC Morphology NORMAL APPEARANCE (NORMAL) Platelet Estimate NORMAL (130-450,000) (NORMAL) Platelet Morphology NORMAL APPEARANCE (NORMAL) RBC Morph Micro Appear NORMAL APPEARANCE (NORMAL) ESR (0-20) mm/Hr Fibrinogen (220-496) mg/dL Sodium (135-145) mmol/L Potassium (3.5-5.0) mmol/L Chloride (101-111) mmol/L Carbon Dioxide (21-32) mmol/L Anion Gap (6-13) BUN (6-20) mg/dL Creatinine (0.4-1.0) mg/dL Estimated GFR (MDRD) (>89) Glucose (70-100) mg/dL Uric Acid (2.6-7.2) mg/dL Calcium (8.5-10.3) mg/dL Magnesium (1.7-2.8) mg/dL Total Bilirubin (0.2-1.0) mg/dL AST (10-42) IU/L ALT (10-60) IU/L Alkaline Phosphatase (42-121) IU/L Lactate Dehydrogenase 228 H (91-225) IU/L C-Reactive Protein (0-1.0) mg/dL Total Protein (6.7-8.2) g/dL Albumin (3.2-5.5) g/dL Globulin (2.1-4.2) g/dL Albumin/Globulin Ratio (1.0-2.2) Vitamin B12 (180-914) pg/mL Folate (5.90 - >24.8) ng/mL TSH (0.34-5.60) uIU/mL Thyroxine (T4) (6.09-12.23) ug/dL Urine Creatinine mg/dL Ur Total Protein Timed mg/dL Protein/Creatinin Ratio (<=0.2) Urine Opiates Screen (NEGATIVE) Ur Oxycodone Screen (NEGATIVE) Urine Methadone Screen (NEGATIVE) Ur Propoxyphene Screen (NEGATIVE) Ur Barbiturates Screen (NEGATIVE) Ur Tricyclics Screen (NEGATIVE) Ur Phencyclidine Scrn (NEGATIVE) Ur Amphetamine Screen (NEGATIVE) U Methamphetamines Scrn (NEGATIVE) U Benzodiazepines Scrn (NEGATIVE) Urine Cocaine Screen (NEGATIVE) U Cannabinoids Screen (NEGATIVE) - Current Medications Current Medications: Current Medications Generic Name Dose Route Start Last Admin Trade Name Freq PRN Reason Stop Dose Admin Acetaminophen 1,000 mg 02/16/17 09:00 02/18/17 09:28 Tylenol PO 1,000 mg Q8H SARHA Administration Docusate Sodium 100 mg 02/16/17 09:00 02/18/17 09:28 Colace 100mg Capsule PO 100 mg BID SARAH Administration Lactated Ringer's 1,000 mls @ 100 mls/hr 02/16/17 09:00 02/17/17 15:28 Lr IV 30 mls/hr .Q10H SARAH Administration Magnesium Sulfate 40 gm/ 500 mls @ 34.37 mls/hr 02/17/17 15:00 02/18/17 03:17 Lactated Ringer's IV 34.37 mls/hr .[id number] SARAH Administration 2.75 GM/HR Ibuprofen 600 mg 02/17/17 09:00 02/18/17 06:02 Motrin PO 600 mg Q6H SARAH Administration Oxycodone HCl 5 - 10 mg 02/16/17 14:40 02/17/17 04:20 Roxicodone PO 10 mg Q4HR PRN Administration PAIN Phenazopyridine HCl 100 mg 02/17/17 22:00 02/18/17 08:38 Pyridium PO Not Given TID SARAH Simethicone 80 mg 02/16/17 14:00 02/18/17 06:02 Mylicon PO 80 mg TID SARAH Administration Sodium Chloride 10 ml 02/16/17 08:41 02/16/17 15:19 Normal Saline Flush 0.9% IVP 10 ml PRN PRN Administration NEEDED PER PROVIDER ORDERS Sodium Chloride 10 ml 02/16/17 14:00 02/18/17 08:37 Normal Saline Flush 0.9% IVP Not Given Q8HR [facility] Physical Exam - Physical Exam General: positive: No acute distress HEENT: positive: Atraumatic, Moist mucous membranes Neck: positive: Supple w/out meningeal sx Cardiac: positive: Regular Rate, Regular Rhythm, Normal pulses Resipratory: positive: Clear to ausultation floridalma, Other (Await CXR result) Abdomen: positive: Normal Bowel sounds, Tender to palpation (Appropriate) Female : positive: Other (Uterus 17-18 wk Firm Nontender) Extremities: positive: No pedal edema, Non tender, Pedal Pulses Present Skin: positive: Warm and dry Neurologic: positive: Alert and Oriented X 3, Normal Sensation, Normal Speech Assessment/Plan - Assessment/Plan Assessment: BP remain normal and no PIH Sx. Mild lab elevations explained by siezure and postop status. Mg drip probably not required after 24 hrs. Discussed case w Dr. Smith. Plan: 1. Stop Mag & Saab at 1200 2. MRI this morning 3. Pt promises to begin post Mg 4. Supportive Care
[2017-02-18] MEDS: SODIUM CHLORIDE FLUSH 0.9% 10 ML SYRINGE IVP PRN ×2 (11:06→19:46)
--- NOTE | 2017-02-18 13:43 | XRAY Preliminary Report ---
Exam: XR Chest 2 View PA/LAT IMPRESSION: 1. Bilateral lower lobe atelectasis and potential airspace disease. Potential lower lobe pneumonia. 2. Trace postoperative free intraperitoneal air. [facility] SITE ID: [id number]
--- NOTE | 2017-02-18 13:45 | XRAY Report ---
EXAM: CHEST RADIOGRAPHY EXAM DATE: 02/18/2017 12:35 PM. CLINICAL HISTORY: Status post seizure and yesterday. COMPARISON: None. TECHNIQUE: 2 views. FINDINGS: Lungs/Pleura: Patchy bilateral lower lobe opacities. Diskoid right basilar opacity. No pneumothorax. No pleural effusion. Mediastinum: Heart and mediastinal contours are unremarkable. Other: Trace postoperative free intraperitoneal air. Visualized colon is distended with air. IMPRESSION: 1. Bilateral lower lobe atelectasis and potential airspace disease. Potential lower lobe pneumonia. 2. Trace postoperative free intraperitoneal air. [facility] Referring Provider Line: [phone] SITE ID: [id number]
--- NOTE | 2017-02-18 14:23 | MRI Preliminary Report ---
Exam: MRI Brain W/O Impression: No acute infarct or mass lesion identified. No developmental anomaly or prior hemorrhage. No evident prior infarct. No findings convincing for mesial temporal sclerosis. There is qualitative mildly elevated T2 signal in the bilateral hippocampi, may be postictal. SITE ID: [id number]
--- NOTE | 2017-02-18 14:26 | MRI Report ---
EXAM: MRI BRAIN WITHOUT CONTRAST COMPARISON: CT head, 02/17/2017. CLINICAL HISTORY: Seizure TECHNIQUE: Multiplanar multisequence imaging is performed through the head without contrast. FINDINGS: Diffusion-weighted imaging shows no acute infarct. Gradient sequence shows no evidence of prior parenchymal hemorrhage. T2 FLAIR imaging shows minimal white matter T2 prolongation, no masses. T2 spin-echo imaging shows No posterior fossa masses. No prior posterior fossa infarct. T1 spoiled gradient sequence shows no abnormal parenchymal elevated T1 signal. No developmental anoma lies are identified. Pituitary fossa, clivus and foramen magnum are unremarkable. Midline structures are normally formed. T2 FLAIR imaging, coronal, shows no qualitative asymmetry in the Eye. Question of subtly elevated T2 signal in both hippocampi, may reflect a postictal change. Left sphenoid sinus fluid is noted. Mucosal thickening, focal correlation with less sphenoid sinusiti s suggested. No calvarial signal abnormality. Visualized orbits are unremarkable. Impression: No acute infarct or mass lesion identified. No developmental anomaly or prior hemorrhage. No evident prior infarct. No findings convincing for mesial temporal sclerosis. There is qualitative mildly elevated T2 signal in the bilateral hippocampi, may be postictal. Referring Provider Line: [phone] SITE ID: [id number]
--- NOTE | 2017-02-18 16:14 | PROVIDER PROGRESS NOTE ---
Assessment/Plan - Problem List (1) Tonic clonic convulsion Assessment/Plan: Stephany has not had another seizure. Her W/U to date is negative. She needs an outpt. EEG. - Current Meds Current Meds: Current Medications Generic Name Dose Route Start Last Admin Trade Name [place] PRN Reason Stop Dose Admin Acetaminophen 1,000 mg 02/16/17 09:00 02/18/17 09:28 Tylenol PO 1,000 mg Q8H SARAH Administration Docusate Sodium 100 mg 02/16/17 09:00 02/18/17 09:28 Colace 100mg Capsule PO 100 mg BID SARAH Administration Ibuprofen 600 mg 02/17/17 09:00 02/18/17 13:41 Motrin PO 600 mg Q6H SARAH Administration Oxycodone HCl 5 - 10 mg 02/16/17 14:40 02/17/17 04:20 Roxicodone PO 10 mg Q4HR PRN Administration PAIN Phenazopyridine HCl 100 mg 02/17/17 22:00 02/18/17 08:38 Pyridium PO Not Given TID SARAH Simethicone 80 mg 02/16/17 14:00 02/18/17 13:42 Mylicon PO 80 mg TID SARAH Administration Sodium Chloride 10 ml 02/16/17 08:41 02/18/17 11:06 Normal Saline Flush 0.9% IVP 10 ml PRN PRN Administration NEEDED PER PROVIDER ORDERS Sodium Chloride 10 ml 02/16/17 14:00 02/18/17 08:37 Normal Saline Flush 0.9% IVP Not Given Q8HR SARAH - Lab Result Fish Bone Diagrams: 02/18/17 06:40 02/17/17 11:11 Subjective - Subjective Patient Reports: Feeling Better, Fatigue Nursing Reports: Sedated Objective Vital Signs: Vital Signs - 24 hr 02/17/17 02/17/17 02/17/17 16:30 17:00 17:30 Temperature Heart Rate [ 74 82 79 Monitoring electrodes] Respiratory 16 16 16 Rate Blood Pressure 97/65 94/68 94/67 [Right Brachial artery] O2 Saturation 99 98 97 02/17/17 02/17/17 02/17/17 18:00 19:20 20:12 Temperature 36.3 C L Heart Rate [ 77 78 83 Monitoring electrodes] Respiratory 16 18 18 Rate Blood Pressure 100/59 L 94/59 L 101/68 [Right Brachial artery] O2 Saturation 97 02/17/17 02/17/17 02/17/17 21:00 22:00 23:00 Temperature 36.1 C L Heart Rate [ 75 75 84 Monitoring electrodes] Respiratory 16 16 16 Rate Blood Pressure 98/63 93/61 98/65 [Right Brachial artery] O2 Saturation 98 98 98 02/18/17 02/18/17 02/18/17 00:00 01:00 02:00 Temperature Heart Rate [ 79 74 69 Monitoring electrodes] Respiratory 16 16 16 Rate Blood Pressure 103/67 97/63 99/68 [Right Brachial artery] O2 Saturation 99 98 98 02/18/17 02/18/17 02/18/17 03:00 04:00 05:00 Temperature Heart Rate [ 70 68 71 Monitoring electrodes] Respiratory 16 16 16 Rate Blood Pressure 87/52 L 87/52 L 89/60 L [Right Brachial artery] O2 Saturation 97 98 98 02/18/17 02/18/17 02/18/17 06:00 07:26 10:00 Temperature 36.5 C Heart Rate [ 71 81 86 Monitoring electrodes] Respiratory 18 14 16 Rate Blood Pressure 87/64 L 108/73 106/69 [Right Brachial artery] O2 Saturation 97 93 96 I&O (Last 24 Hrs): Intake and Output Totals x24h 02/16/17 02/17/17 02/18/17 23:59 23:59 23:59 Intake Total 2384 1749 2614 Output Total 1625 4674 2645 Balance 759 -1105 -31 General: Alert, Oriented x3, Cooperative HEENT: PERRLA, EOMI Neck: No JVD, No thyromegaly Neuro: Alert, Oriented Times 3, Other (no clonus reflexes nml.) Cardiovascular: Regular rate, No murmurs Respiratory: Chest non-tender, No respiratory distress, Breath sounds nml Abdomen: Normal bowel sounds, No tenderness Extremities: No clubbing, No edema - Results Results: Laboratory Results WBC 13.2 x10^3/uL (4.8-10.8) H 02/18/17 06:40 RBC 3.21 10^6/uL (4.20-5.40) L 02/18/17 06:40 Hgb 10.9 g/dL (12.0-16.0) L 02/18/17 06:40 Hct 33.0 % (37.0-47.0) L 02/18/17 06:40 MCV 102.8 fL (81.0-99.0) H 02/18/17 06:40 MCH 33.9 pg (27.0-31.0) H 02/18/17 06:40 MCHC 32.9 g/dL (32.0-36.0) 02/18/17 06:40 RDW 13.3 % (12.0-15.0) 02/18/17 06:40 Plt Count 206 10^3/uL (130-450) 02/18/17 06:40 MPV 8.2 fL (7.9-10.8) 02/18/17 06:40 Neut # 10.2 10^3/uL (1.5-6.6) H 02/18/17 06:40 Lymph # 2.2 10^3/uL (1.5-3.5) 02/18/17 06:40 [place] # 0.6 10^3/uL (0.0-1.0) 02/18/17 06:40 Eos # 0.2 10^3/uL (0.0-0.7) 02/18/17 06:40 Baso # 0.0 10^3/uL (0.0-0.1) 02/18/17 06:40 Absolute Nucleated RBC 0.00 x10^3/uL 02/18/17 06:40 Nucleated RBCs 0.0 /100WBC 02/18/17 06:40 Manual Slide Review Indicated 02/17/17 11:11 WBC Morphology NORMAL APPEARANCE (NORMAL) 02/17/17 11:11 Platelet Estimate NORMAL (130-450,000) (NORMAL) 02/17/17 11:11 Platelet Morphology NORMAL APPEARANCE (NORMAL) 02/17/17 11:11 RBC Morph Micro Appear NORMAL APPEARANCE (NORMAL) 02/17/17 11:11 ESR 77 mm/Hr (0-20) H 02/18/17 06:40 Fibrinogen 669 mg/dL (220-496) H 02/18/17 06:40 Sodium 139 mmol/L (135-145) 02/17/17 11:11 Potassium 3.9 mmol/L (3.5-5.0) 02/17/17 11:11 Chloride 104 mmol/L (101-111) 02/17/17 11:11 Carbon Dioxide 19 mmol/L (21-32) L 02/17/17 11:11 Anion Gap 16.0 (6-13) H 02/17/17 11:11 BUN 11 mg/dL (6-20) 02/17/17 11:11 Creatinine 0.9 mg/dL (0.4-1.0) 02/17/17 11:11 Estimated GFR (MDRD) 89 (>89) 02/17/17 11:11 Glucose 114 mg/dL (70-100) H 02/17/17 11:11 Uric Acid 6.0 mg/dL (2.6-7.2) 02/18/17 06:40 Calcium 8.7 mg/dL (8.5-10.3) 02/17/17 11:11 Magnesium 6.9 mg/dL (1.7-2.8) H* 02/18/17 06:40 Total Bilirubin 0.4 mg/dL (0.2-1.0) 02/17/17 11:11 AST 23 IU/L (10-42) 02/18/17 06:40 ALT 17 IU/L (10-60) 02/17/17 11:11 Alkaline Phosphatase 94 IU/L (42-121) 02/17/17 11:11 Lactate Dehydrogenase 192 IU/L (91-225) 02/18/17 06:40 C-Reactive Protein 7.6 mg/dL (0-1.0) H 02/18/17 06:40 Total Protein 6.0 g/dL (6.7-8.2) L 02/17/17 11:11 Albumin 2.5 g/dL (3.2-5.5) L 02/17/17 11:11 Globulin 3.5 g/dL (2.1-4.2) 02/17/17 11:11 Albumin/Globulin Ratio 0.7 (1.0-2.2) L 02/17/17 11:11 Vitamin B12 269 pg/mL (180-914) 02/18/17 06:40 Folate 16.41 ng/mL (5.90 - >24.8) 02/18/17 06:40 TSH 1.31 uIU/mL (0.34-5.60) 02/18/17 06:40 Thyroxine (T4) 8.86 ug/dL (6.09-12.23) 02/18/17 06:40 Urine Color YELLOW 02/15/17 06:55 Urine Clarity CLEAR (CLEAR) 02/15/17 06:55 Urine pH 6.5 PH (5.0-7.5) 02/15/17 06:55 Ur Specific [place] 1.010 (1.002-1.030) 02/15/17 06:55 Urine Protein NEGATIVE mg/dL (NEGATIVE) 02/15/17 06:55 Urine Glucose (UA) NEGATIVE mg/dL (NEGATIVE) 02/15/17 06:55 Urine Ketones NEGATIVE mg/dL (NEGATIVE) 02/15/17 06:55 Urine Occult Blood TRACE-INTA (NEGATIVE) 02/15/17 06:55 Urine Nitrite NEGATIVE (NEGATIVE) 02/15/17 06:55 Urine Bilirubin NEGATIVE (NEGATIVE) 02/15/17 06:55 Urine Urobilinogen 0.2 (NORMAL) E.U./dL (NORMAL) 02/15/17 06:55 Ur Leukocyte Esterase NEGATIVE (NEGATIVE) 02/15/17 06:55 Ur Microscopic Review NOT INDICATED 02/15/17 06:55 Urine Culture Comments NOT INDICATED 02/15/17 06:55 Urine Creatinine 47.4 mg/dL 02/17/17 12:50 Ur Total Protein Timed 21 mg/dL 02/17/17 12:50 Protein/Creatinin Ratio 0.4 (<=0.2) H 02/17/17 12:50 Urine Opiates Screen NEGATIVE (NEGATIVE) 02/17/17 12:50 Ur Oxycodone Screen POSITIVE (NEGATIVE) H 02/17/17 12:50 Urine Methadone Screen NEGATIVE (NEGATIVE) 02/17/17 12:50 Ur Propoxyphene Screen NEGATIVE (NEGATIVE) 02/17/17 12:50 Ur Barbiturates Screen NEGATIVE (NEGATIVE) 02/17/17 12:50 Ur Tricyclics Screen NEGATIVE (NEGATIVE) 02/17/17 12:50 Ur Phencyclidine Scrn NEGATIVE (NEGATIVE) 02/17/17 12:50 Ur Amphetamine Screen NEGATIVE (NEGATIVE) 02/17/17 12:50 U Methamphetamines Scrn NEGATIVE (NEGATIVE) 02/17/17 12:50 U Benzodiazepines Scrn NEGATIVE (NEGATIVE) 02/17/17 12:50 Urine Cocaine Screen NEGATIVE (NEGATIVE) 02/17/17 12:50 U Cannabinoids Screen NEGATIVE (NEGATIVE) 02/17/17 12:50
[2017-02-19] MEDS: ACETAMINOPHEN 500 MG TABLET PO SCH ×3 (02:12→17:06)
[2017-02-19] MEDS: IBUPROFEN 600 MG TABLET PO SCH ×4 (02:12→23:17)
--- NOTE | 2017-02-19 07:55 | PROVIDER PROGRESS NOTE ---
Assessment/Plan - Problem List (1) Tonic clonic convulsion Assessment/Plan: No further seizures. She is breast feeding and she is very animated and nml neurologic Her MR of brain was also nml. Will sign off. Thank you for the opportunity to consult on the care of this person. Donell Smith MD - Current Meds Current Meds: Current Medications Generic Name Dose Route Start Last Admin Trade Name Freq PRN Reason Stop Dose Admin Acetaminophen 1,000 mg 02/16/17 09:00 02/19/17 02:12 Tylenol PO 1,000 mg Q8H SARAH Administration Docusate Sodium 100 mg 02/16/17 09:00 02/18/17 19:46 Colace 100mg Capsule PO 100 mg BID SARAH Administration Ibuprofen 600 mg 02/17/17 09:00 02/19/17 02:12 Motrin PO 600 mg Q6H SARAH Administration Oxycodone HCl 5 - 10 mg 02/16/17 14:40 02/17/17 04:20 Roxicodone PO 10 mg Q4HR PRN Administration PAIN Phenazopyridine HCl 100 mg 02/17/17 22:00 02/18/17 08:38 Pyridium PO Not Given TID SARAH Simethicone 80 mg 02/16/17 14:00 02/18/17 19:46 Mylicon PO 80 mg TID SARAH Administration Sodium Chloride 10 ml 02/16/17 08:41 02/18/17 19:46 Normal Saline Flush 0.9% IVP 10 ml PRN PRN Administration NEEDED PER PROVIDER ORDERS Sodium Chloride 10 ml 02/16/17 14:00 02/18/17 08:37 Normal Saline Flush 0.9% IVP Not Given Q8HR SARAH - Lab Result Fish Bone Diagrams: 02/18/17 06:40 02/17/17 11:11 Subjective - Subjective Patient Reports: Feeling Better, Resting Comfortably, No Complaints Objective Vital Signs: Vital Signs - 24 hr 02/18/17 02/18/17 02/18/17 10:00 19:33 23:12 Temperature 37.2 C 36.9 C Heart Rate [ 86 87 83 Monitoring electrodes] Respiratory 16 18 16 Rate Blood Pressure 106/69 109/69 106/60 [Right Brachial artery] O2 Saturation 96 97 94 02/19/17 02:19 Temperature 36.6 C Heart Rate [ 79 Monitoring electrodes] Respiratory 18 Rate Blood Pressure 110/73 [Right Brachial artery] O2 Saturation 96 I&O (Last 24 Hrs): Intake and Output Totals x24h 02/17/17 02/18/17 02/19/17 23:59 23:59 23:59 Intake Total 1749 2974 Output Total 2854 2645 Balance -1105 329 General: Alert, Oriented x3, Cooperative HEENT: PERRLA, EOMI Neck: No JVD, No thyromegaly Neuro: Alert, Oriented Times 3 Cardiovascular: Regular rate, No murmurs Respiratory: No respiratory distress, Breath sounds nml - Results Results: Laboratory Results WBC 13.2 x10^3/uL (4.8-10.8) H 02/18/17 06:40 RBC 3.21 10^6/uL (4.20-5.40) L 02/18/17 06:40 Hgb 10.9 g/dL (12.0-16.0) L 02/18/17 06:40 Hct 33.0 % (37.0-47.0) L 02/18/17 06:40 MCV 102.8 fL (81.0-99.0) H 02/18/17 06:40 MCH 33.9 pg (27.0-31.0) H 02/18/17 06:40 MCHC 32.9 g/dL (32.0-36.0) 02/18/17 06:40 RDW 13.3 % (12.0-15.0) 02/18/17 06:40 Plt Count 206 10^3/uL (130-450) 02/18/17 06:40 MPV 8.2 fL (7.9-10.8) 02/18/17 06:40 Neut # 10.2 10^3/uL (1.5-6.6) H 02/18/17 06:40 Lymph # 2.2 10^3/uL (1.5-3.5) 02/18/17 06:40 [place] # 0.6 10^3/uL (0.0-1.0) 02/18/17 06:40 Eos # 0.2 10^3/uL (0.0-0.7) 02/18/17 06:40 Baso # 0.0 10^3/uL (0.0-0.1) 02/18/17 06:40 Absolute Nucleated RBC 0.00 x10^3/uL 02/18/17 06:40 Nucleated RBCs 0.0 /100WBC 02/18/17 06:40 Manual Slide Review Indicated 02/17/17 11:11 WBC Morphology NORMAL APPEARANCE (NORMAL) 02/17/17 11:11 Platelet Estimate NORMAL (130-450,000) (NORMAL) 02/17/17 11:11 Platelet Morphology NORMAL APPEARANCE (NORMAL) 02/17/17 11:11 RBC Morph Micro Appear NORMAL APPEARANCE (NORMAL) 02/17/17 11:11 ESR 77 mm/Hr (0-20) H 02/18/17 06:40 Fibrinogen 669 mg/dL (220-496) H 02/18/17 06:40 Sodium 139 mmol/L (135-145) 02/17/17 11:11 Potassium 3.9 mmol/L (3.5-5.0) 02/17/17 11:11 Chloride 104 mmol/L (101-111) 02/17/17 11:11 Carbon Dioxide 19 mmol/L (21-32) L 02/17/17 11:11 Anion Gap 16.0 (6-13) H 02/17/17 11:11 BUN 11 mg/dL (6-20) 02/17/17 11:11 Creatinine 0.9 mg/dL (0.4-1.0) 02/17/17 11:11 Estimated GFR (MDRD) 89 (>89) 02/17/17 11:11 Glucose 114 mg/dL (70-100) H 02/17/17 11:11 Uric Acid 6.0 mg/dL (2.6-7.2) 02/18/17 06:40 Calcium 8.7 mg/dL (8.5-10.3) 02/17/17 11:11 Magnesium 6.9 mg/dL (1.7-2.8) H* 02/18/17 06:40 Total Bilirubin 0.4 mg/dL (0.2-1.0) 02/17/17 11:11 AST 23 IU/L (10-42) 02/18/17 06:40 ALT 17 IU/L (10-60) 02/17/17 11:11 Alkaline Phosphatase 94 IU/L (42-121) 02/17/17 11:11 Lactate Dehydrogenase 192 IU/L (91-225) 02/18/17 06:40 C-Reactive Protein 7.6 mg/dL (0-1.0) H 02/18/17 06:40 Total Protein 6.0 g/dL (6.7-8.2) L 02/17/17 11:11 Albumin 2.5 g/dL (3.2-5.5) L 02/17/17 11:11 Globulin 3.5 g/dL (2.1-4.2) 02/17/17 11:11 Albumin/Globulin Ratio 0.7 (1.0-2.2) L 02/17/17 11:11 Vitamin B12 269 pg/mL (180-914) 02/18/17 06:40 Folate 16.41 ng/mL (5.90 - >24.8) 02/18/17 06:40 TSH 1.31 uIU/mL (0.34-5.60) 02/18/17 06:40 Thyroxine (T4) 8.86 ug/dL (6.09-12.23) 02/18/17 06:40 Urine Color YELLOW 02/15/17 06:55 Urine Clarity CLEAR (CLEAR) 02/15/17 06:55 Urine pH 6.5 PH (5.0-7.5) 02/15/17 06:55 Ur Specific [place] 1.010 (1.002-1.030) 02/15/17 06:55 Urine Protein NEGATIVE mg/dL (NEGATIVE) 02/15/17 06:55 Urine Glucose (UA) NEGATIVE mg/dL (NEGATIVE) 02/15/17 06:55 Urine Ketones NEGATIVE mg/dL (NEGATIVE) 02/15/17 06:55 Urine Occult Blood TRACE-INTA (NEGATIVE) 02/15/17 06:55 Urine Nitrite NEGATIVE (NEGATIVE) 02/15/17 06:55 Urine Bilirubin NEGATIVE (NEGATIVE) 02/15/17 06:55 Urine Urobilinogen 0.2 (NORMAL) E.U./dL (NORMAL) 02/15/17 06:55 Ur Leukocyte Esterase NEGATIVE (NEGATIVE) 02/15/17 06:55 Ur Microscopic Review NOT INDICATED 02/15/17 06:55 Urine Culture Comments NOT INDICATED 02/15/17 06:55 Urine Creatinine 47.4 mg/dL 02/17/17 12:50 Ur Total Protein Timed 21 mg/dL 02/17/17 12:50 Protein/Creatinin Ratio 0.4 (<=0.2) H 02/17/17 12:50 Urine Opiates Screen NEGATIVE (NEGATIVE) 02/17/17 12:50 Ur Oxycodone Screen POSITIVE (NEGATIVE) H 02/17/17 12:50 Urine Methadone Screen NEGATIVE (NEGATIVE) 02/17/17 12:50 Ur Propoxyphene Screen NEGATIVE (NEGATIVE) 02/17/17 12:50 Ur Barbiturates Screen NEGATIVE (NEGATIVE) 02/17/17 12:50 Ur Tricyclics Screen NEGATIVE (NEGATIVE) 02/17/17 12:50 Ur Phencyclidine Scrn NEGATIVE (NEGATIVE) 02/17/17 12:50 Ur Amphetamine Screen NEGATIVE (NEGATIVE) 02/17/17 12:50 U Methamphetamines Scrn NEGATIVE (NEGATIVE) 02/17/17 12:50 U Benzodiazepines Scrn NEGATIVE (NEGATIVE) 02/17/17 12:50 Urine Cocaine Screen NEGATIVE (NEGATIVE) 02/17/17 12:50 U Cannabinoids Screen NEGATIVE (NEGATIVE) 02/17/17 12:50
[2017-02-19] MEDS: SIMETHICONE CHEW 80 MG TABLET PO SCH ×2 (09:39→18:25)
[2017-02-19] MEDS: DOCUSATE SODIUM 100 MG CAPSULE PO SCH ×2 (09:39→21:50)
--- NOTE | 2017-02-19 10:47 | PROVIDER PROGRESS NOTE ---
Subjective - General Admit Date: 02/15/17 Procedure Date: 02/16/17 Post Op Days: 3 Procedure Performed: PLTC/S - Review of Systems Wound/Incisions: positive: Healing well, Dressing dry and intact, Other (wound dry & intact) General: positive: No symptoms (Pian 4/10. Sleepy this AM), Other (Feels well) HEENT: positive: Visual changes (Blurred vision. No Scomatoma or Scintilation) Pulmonary: positive: No symptoms Cardiovascular: positive: No symptoms Gastrointestinal: positive: No symptoms, Flatus, Other Genitourinary: positive: No symptoms (voiding), Other (Min Nonfoul Lochia) Musculoskeletal: positive: Other (No edema; Diffuse Muscle weakness - Mg Effect) Skin: positive: No symptoms Psychiatric: positive: No symptoms, Other All Other Systems: positive: Reviewed and negative - Other Other Information/Narrative: Now feels "normal" without focal nuero complaint or Aura. No PIH Sx. Breast Feeding going well. Pain relief maintained wo Oxycodone. Objective - Patient Data Vital Signs: Vital Signs x48h Temp Pulse Pulse Resp BP 02/19/17 09:20 98.4 F 87 87 15 129/75 Weight: Weight 02/17/17 02/18/17 02/19/17 23:59 23:59 23:59 Weight (kg) 68.039 kg Intake & Output: Intake and Output Totals x24h 02/17/17 02/18/17 02/19/17 23:59 23:59 23:59 Intake Total 1749 2974 Output Total 2854 2645 Balance -1105 329 - Lab Results Lab Results: 02/18/17 06:40 02/17/17 11:11 - Current Medications Current Medications: Current Medications Generic Name Dose Route Start Last Admin Trade Name Freq PRN Reason Stop Dose Admin Acetaminophen 1,000 mg 02/16/17 09:00 02/19/17 09:38 Tylenol PO 1,000 mg Q8H SARAH Administration Docusate Sodium 100 mg 02/16/17 09:00 02/19/17 09:39 Colace 100mg Capsule PO 100 mg BID SARAH Administration Ibuprofen 600 mg 02/17/17 09:00 02/19/17 09:39 Motrin PO 600 mg Q6H SARAH Administration Oxycodone HCl 5 - 10 mg 02/16/17 14:40 02/17/17 04:20 Roxicodone PO 10 mg Q4HR PRN Administration PAIN Phenazopyridine HCl 100 mg 02/17/17 22:00 02/18/17 08:38 Pyridium PO Not Given TID SARAH Simethicone 80 mg 02/16/17 14:00 02/19/17 09:39 Mylicon PO 80 mg TID SARAH Administration Sodium Chloride 10 ml 02/16/17 08:41 02/18/17 19:46 Normal Saline Flush 0.9% IVP 10 ml PRN PRN Administration NEEDED PER PROVIDER ORDERS Sodium Chloride 10 ml 02/16/17 14:00 02/18/17 08:37 Normal Saline Flush 0.9% IVP Not Given Q8HR SARAH Physical Exam - Physical Exam General: positive: No acute distress, Alert HEENT: positive: EOMI, Moist mucous membranes Cardiac: positive: Regular Rate, Regular Rhythm Resipratory: positive: Clear to ausultation floridalma Abdomen: positive: Normal Bowel sounds Female : positive: Enlarged uterus (17 wk) Extremities: positive: No pedal edema Skin: positive: Warm and dry Neurologic: positive: Alert and Oriented X 3, Normal Sensation, Normal Speech Assessment/Plan - Assessment/Plan Assessment: Patient experienced a tonic-clonic siezure 2 days ago without recurrance. No Sx , Physical findings (BP) or lab values consistent w GHTN or Preeclampsia. Internal medicine & MRI work up unrevealing thus far. SR, CRP and fibrinogen normally elevated in . More hospital needed for usual maternal education and supportive care. Plan: 1. Supportive Care 2. Push Inscentive galo 3. Neurology & EEG post discharge.
[2017-02-20] MEDS: ACETAMINOPHEN 500 MG TABLET PO SCH ×2 (00:34→08:53)
[2017-02-20] MEDS: IBUPROFEN 600 MG TABLET PO SCH (05:41)
--- NOTE | 2017-02-20 07:51 | Discharge Plan ---
Discharge Plan Disposition: Home, Self Care Condition: Good Diet: Regular Activity Restrictions: Activity as Tolerated Shower Restrictions: No Driving Restrictions: No Additional Instructions or Follow Up instructions: Wound aand BP check on Monday; Neurology appointment will be made at that time No Smoking: If you smoke, Please STOP! Call for help. Follow-up with: Enoc Stewart MD [Provider Admit Priv/Credential] -
[2017-02-20 08:42] VITALS: BP 138/91
[2017-02-20] MEDS: DOCUSATE SODIUM 100 MG CAPSULE PO SCH (09:02)
--- NOTE | 2017-02-21 11:45 | CONSULTATION NOTE ---
DATE OF CONSULTATION: 02/17/2017 00:00:00 SERVICE REQUESTING CONSULTATION: Obstetrics service, Dr. García SERVICE REQUESTED: Hospitalist service, Donell Smith MD REASON FOR CONSULTATION: Seizure. IDENTIFYING INFORMATION: The patient is a 32-year-old, G1, P1, postop day #1 , who had a gra nd mal seizure. She is now postictal and able to respond to questions; appears cogent and consistent. Her is present, as are her adoptive parents and the 's parents. The patient's history is supplemented by the information supplied by Dr. García, the medical support assistant attending. HISTORY OF PRESENT ILLNESS: The patient presented when this physician was called as part of a code, a nd the patient was seen to be having tonic movements with eyes deviated to the left and shallow breat taty; lasted approximately 2-3 minutes, was present for 1-2 minutes before the arrival of this physic alie. The patient responded to Ativan, a postictal. The patient's past medical history is unremarkable. She has had no surgeries other than . Kathleen peterson has had no major illnesses, takes no ongoing medicines. She did have a mosquito bite on the bridge of her nose when she was 5 years old that required her to be in the hospital on antibiotics for 3 da ys, but there was no sequelae, in particular no encephalitis or other neurologic symptoms or findings at that time. PERSONAL AND SOCIAL HISTORY: The patient was adopted as stated above, lives with her ; just soto d a baby girl, Ramses Aguiar. She does not smoke and never has; does not drink alcohol. No other use of i llicit drugs. Her urine drug screen was positive after delivery for oxycodone only. FAMILY HISTORY: The patient's family history is unobtainable because she is adopted. REVIEW OF SYSTEMS: Other than the seizures, reviewed completely and negative. PHYSICAL EXAMINATION VITAL SIGNS: The patient at 8:09 had a temp of 36.3, at 1500 hours 36.5 when the patient was seen. Kathleen peterson had a pulse of 88. Her blood pressure was normal at 105/68, respiration 99 on 4 liters. HEENT: Eyes EOM within normal limits, PERRL, anicteric. Mouth and throat moist mucous membranes. No o ther pathology noted in the mouth or pharynx. NECK: No lymphadenopathy. No JVD. No thyromegaly noted. CHEST: Patient's chest wall nontender, symmetric. No breast exam done. HEART: Normal sinus rhythm. No murmur. LUNGS: Clear to auscultation. No increased work of breathing. ABDOMEN: Soft, minimal tenderness. RECTAL/GENITAL: No rectal or genital exam done. EXTREMITIES: No edema. NEUROLOGICAL: The patient has no nystagmus. She has normal reflexes. There is no clonus. The patient' s cognition sometimes appears with a mild lapse in responses. The patient at one time closed her eyes when a question was asked and did not open her eyes until she was talked to again, but there was no seizure activity. SKIN: No suspicious lesions or rash. VASCULAR: She has 2+ pulses posterior tibial bilaterally. No cyanosis. LABORATORY DATA She had a 17,000 white count in the a.m. and then 28,000 after the seizure; 11 and 35.8 hemoglobin an d hematocrit; macrocytosis; platelet count 239. Fibrinogen 697. Sodium 139, potassium 3.9, chloride 104, CO2 is 19, BUN 11, creatinine 0.9, glucose 114, uric acid 5. 8. Magnesium is 1.7 , and then after magnesium infusion was instituted by the medical support assistant 3.7. Liver enzymes, minimal elevation of the ALT is 17, and the alkaline phosphatase is 94. LDH is minimal ly elevated at 228. The albumin is 2.5. Urine on admission is negative for protein, negative for leukocyte esterase. SUMMARY: This is a 32-year-old, 1, para 1 with a postoperative day #1 seizure, who is consult ed by the hospitalist service without obvious etiology and needs further workup to be delineated belo w. RECOMMENDATION: Do an MRI; blood work including TSH, T4, sedimentation rate, CRP, B12, folate, and ot her tests if indicated by the results of the initial tests. The patient is also to have a EEG, which will need to be done as an outpatient, have Neurology followup. Thank you for the opportunity to participate in this person's care, and we will follow the patient ov er the course of her hospitalization. JOB #: [id number] EXT JOB #:[id number]
--- NOTE | 2017-02-21 12:30 | DISCHARGE SUMMARY ---
DATE OF ADMISSION: 02/15/2017 DATE OF DISCHARGE: 02/20/2017 DIAGNOSES 1. A 39 week 2 day gestation in labor. 2. Occiput posterior position. 3. Pitocin augmentation. 4. Failure to descend/progress. 5. Tonic-clonic generalized seizure, postoperative day 1. PROCEDURE: Primary lower segment transverse section. COMPLICATIONS: New onset seizure, etiology uncertain, possibly atypical eclampsia. 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 HISTORY OF PRESENT ILLNESS: The patient is a 32-year-old [facility] [place] primigravida at 39 weeks 2 days' gestation (confirmed by 9 week ultrasound) who presents with uterine contractions, category I strip and initial vaginal exam of 4 cm/70%/-1 station. Reference Sierra Dewitt's admission H and P. The patient has no history of hypertensive or cardiovascular disease. There were no symptoms or physical findings consistent with GHTN or preeclampsia. She has never had a history of seizure epi sodes or neurologic disease. HOSPITAL COURSE: The patient was admitted and allowed to labor, initially with a hot tub for analgesi a. Pain steadily mounted, and epidural was placed. The patient was attended by foil cutterRenate an d serial exams confirmed lack of descent despite augmentation IUPC and epidural. Dr. Enoc Stewart was called into consultation. The patient had pushed for 3 hours in various positions, and the decision was made to move to a delivery. Throughout, heart tracing was category I. The patient underwent an uneventful primary lower segment transverse section delivery under epidural anesthesia. Total blood loss was 500. A living female was born weighing poun ds ounces and scored Apgars of / . The patient was taken to the recovery room in good condition. Throughout the intrapartum and immediate time frame, patient was normo tensive. Her admission blood pressure was 132/ , and urine was negative for protein. Postopera tively, blood pressures ranged from 90/49 to 127/55 with a pulse rate of mid 60s and afebrile. On postoperative day 1, the patient experienced a generalized tonic-clonic witnessed tonic-clonic sei zure. Rapid response was called. Dr. García was at the bedside, and initially 1 mg of Ativan was IV pu shed and airway secured. Dr. Smith from hospitalist/internal medicine arrived. The seizures responde d after roughly 90 seconds to 120 seconds. Seizures responded to the 1st dose Ativan. Mag sulfate was ordered. Due to the unusual occurrence without prior PIH suspicion immediate CT scan of the head was done to ensure there was no bleed. CT scan was reviewed with Radiology and found to be normal. The p atient was begun on a mag sulfate drip after a 4 g loading dose. Drip was adjusted to a therapeutic r xavier. Internal Medicine consultation for seizure disorder was ordered. Baseline hemoglobin was 13.7 a nd was stable at 10 to 11. Platelets were 182 to 239 with leukocytosis from 16.9 to 28,000 post seizu re. Leukocytosis was plus bump and LDH was expected given seizure disorder and recent surgery. Vitami n B12 was normal at 269. Folate normal at 16.41. TSH 1.31, normal and free T4 of 8.86, normal. C-reac tive protein and sedimentation rate were elevated as expected for . Toxicology screen showed no drugs other than the oxycodone that had been given to her postoperatively. 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 Internal Medicine recommended post discharge Neurology evaluation and EEG. By postoperative day 2, the patient brightened and began . Mag sulfate was discontinued . Close watch of blood pressures demonstrated that she was normotensive. Continued nursing education on care and breast feeding was continued. By postoperative day 4, the patient felt well and strongly desired discharge home. Discharge warning and callback instructions were reviewed. The patient will be seen on Monday or Monday for wound c heck and blood pressure evaluation in the office. DISCHARGE MEDICATIONS 1. Motrin 600 q.i.d. 2. Oxycodone 5 mg p.o. q.4 h. p.r.n. breakthrough pain. 3. Colace 100 mg b.i.d. 4. vitamins with iron. 5. Ferrous sulfate 325 one to 2 tabs every day. OPEN ITEMS 1. Patient will require referral to Neurology on her 1st office visit, possibly [facility], Dr. Enma Day. 2. Contraceptive needs and general post- care needs will be addressed with foil cutter BETHANY Chu, ELLY, on the 6 week visit. JOB #: [id number] EXT JOB #:[id number]
== END 2017-02-20 10:00 | disposition home or self-care (01) | DRG 765 ==
LOC: WFO 05:06 → FBP 05:08 → WFO 05:24 → FBP 05:25
PROVIDERS: ADMIT Registered Nurse; ATTEND Obstetrics & Gynecology
PROC: 10H07YZ Insertion of Other Device into Products of Conception, Via Natural or Artificial Opening (ICD-10-PCS; 2017-02-16)
PROC: 10D00Z1 Extraction of Products of Conception, Low, Open Approach (ICD-10-PCS; principal; 2017-02-16 07:30)
DX: O64.0XX0 Obstructed labor due to incomplete rotation of fetal head, not applicable or unspecified (principal); O15.2 Eclampsia complicating the puerperium; O77.0 Labor and delivery complicated by meconium in amniotic fluid; O75.81 Maternal exhaustion complicating labor and delivery; O69.81X0 Labor and delivery complicated by cord around neck, without compression, not applicable or unspecified; O76 Abnormality in fetal heart rate and rhythm complicating labor and delivery; O90.89 Other complications of the puerperium, not elsewhere classified; R56.9 Unspecified convulsions; O9A.23 Injury, poisoning and certain other consequences of external causes complicating the puerperium; S01.552A Open bite of oral cavity, initial encounter; X58.XXXA Exposure to other specified factors, initial encounter; Y92.230 Patient room in hospital as the place of occurrence of the external cause; Z3A.39 39 weeks gestation of pregnancy; Z37.0 Single live birth; Z98.82 Breast implant status
CPT/HCPCS: 36415; 70450; 70551; 71020; 74020; 80053; 80306; 81001; 81003; 82570; 82607; 82746; 83615; 83735; 84156; 84436; 84443; 84450; 84550; 85025; 85384; 85651; 86140; 87086; 99213